=== PATIENT | male | born 1975 | race Caucasian/White ===

== ENCOUNTER 2017-10-17 08:56 | Emergency (ER) | payer OTHER, SELFPAY ==
--- NOTE | 2017-10-17 09:10 | XR_ITS ---
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 No lytic or blastic change. There is normal mineralization.. The joint spaces are well-preserved. No significant degenerative/arthritic changes. No erosive changes evident. IMPRESSION: Negative ankle, no acute finding
[2017-10-17 09:17] VITALS: BP 155/91; PULSE 88; RESP 18; TEMP 36.8; O2SAT 96; BMI 40.6
--- NOTE | 2017-10-17 09:32 | HMH.EDUTC ---
[facility] [place] Disposition Clinical Impression: Ankle sprain Disposition: Home, Self-Care Condition on Discharge: Good Instructions: How To Perform RICE (Rest, Ice, Compress, Elevate), Ankle Sprain, DI for Ankle Sprain Additional Instructions: *weight bearing as tolerated *RICE, Rest the extremity, Ice 15-20 minutes 3-4 times daily, Compress- wear the josafat wrap as discussed as much as possible to help reduce swelling and pain, Elevate the extremity when at rest *Josafat wrap is for support and help control swelling, use it except in the shower. Be sure that is not to tight but not to loose either *Elevate when resting *Ibuprofen 600-800mg every 6-8 hours as needed for pain an inflammation. If need something more can take Tylenol in between doses of Ibuprofen to help Immediately follow up for new or worsening of symptoms, or no noticeable improvement over the next 3-5 days Follow up with family doctor if referral to Orthopedics needed due to no improvement of symptoms Prescriptions: Ibuprofen [Ibuprofen 800mg Tab] 800 mg PO Q6HP PRN #20 tab PRN Reason: Moderate Pain Referrals: Db Ahn MD [Staff Physician] - Dariela Orozco DPM [Physician] - Uri Cruz MD [Staff Physician] - Time of Disposition: 09:50 Medical Decision Making - Medical Records Medical records reviewed: Yes: I reviewed the patient's medical records. Vital Signs: 10/17/17 09:17 Temperature 98.3 F Temperature Source Temporal Artery Scan Pulse Rate [Right] 88 Respiratory Rate 18 Blood Pressure [Right Arm] 155/91 Blood Pressure Mean [Right Arm] 112 Blood Pressure Source [Right Arm] Automatic Cuff Blood Pressure Position [Right Arm] Sitting 02 Sat by Pulse Oximetry 96 Oxygen Delivery Method Room Air Orders (Tests/Meds): ORDERS Category Date Time Status Ankle XR -Right minimum 3 Views [XR ankle RT min 3V] Exams 10/17/17 09:10 Ordered Stat - Alex Inquiry Pt receiving controlled substance: No Alex was queried for this patient: No [facility] [place] HPI - General Stated complaint: WC [id number] Right Ankle Pain Mode of Arrival: Ambulatory Source of Information: Patient Limitations: No Limitations Description of Symptoms (Recalled from Triage Doc. by RN): twisted right ankle sunday morning HEENT Symptoms (Recalled from RN notes): No Resp Symptoms (Recalled from RN notes): No Skin Symptoms (Recalled from RN notes): No MS Symptoms (Recalled from RN notes): Yes Functional Status (Recalled from RN notes): N - History of Present Illness Provider Complaint: Patient state that on Sunday he stepped on a pallet at work and the board broke. State that his ankle rolled to the outside and felt like it twisted State that he has been having pain in the ankle ever since State that he has been able to walk on it but when he steps and it puts pressure towards the outside his ankle feels weak and he feels like he is gonna fall - Related Data Home Medications Medication Instructions Recorded Confirmed Lisinopril/Hydrochlorothiazide 1 tab PO DAILY 10/17/17 10/17/17 [Lisinopril-Hctz 10-12.5 mg Tab] Previous Rx's Medication Instructions Recorded Ibuprofen [Ibuprofen 800mg Tab] 800 mg PO Q6HP PRN #20 tab 10/17/17 Allergies Allergy/AdvReac Type Severity Reaction Status Date / Time bacitracin Allergy Unknown Verified 10/17/17 09:22 [From NEOSPORIN ([id number])] morphine [MORPHINE] Allergy Unknown Verified 10/17/17 09:22 neomycin Allergy Unknown Verified 10/17/17 09:22 [From NEOSPORIN ([id number])] polymyxin B Allergy Unknown Verified 10/17/17 09:22 [From NEOSPORIN ([id number])] - Worker's Comp Is this a Worker's Comp case?: Yes [facility] History I have reviewed the patient's past medical history: Yes Medical History: Reports:: Hypertension - *Social History Alcohol Intake: current Alcohol Intake Frequency:: 0-2 drinks per day - Psychiatric History Expresses thoughts of harming self/o
--- NOTE | 2017-10-17 09:36 | ED_ITS ---
[facility] [place] Disposition Clinical Impression: Ankle sprain Disposition: Home, Self-Care Condition on Discharge: Good Instructions: How To Perform RICE (Rest, Ice, Compress, Elevate), Ankle Sprain , DI for Ankle Sprain Additional Instructions: *weight bearing as tolerated *RICE, Rest the extremity, Ice 15-20 minutes 3-4 times daily, Compress- wear the josafat wrap as discussed as much as possible to help reduce swelling and pain, Elevate the extremity when at rest *Josafat wrap is for support and help control swelling, use it except in the shower. Be sure that is not to tight but not to loose either *Elevate when resting *Ibuprofen 600-800mg every 6-8 hours as needed for pain an inflammation. If need something more can take Tylenol in between doses of Ibuprofen to help Immediately follow up for new or worsening of symptoms, or no noticeable improvement over the next 3-5 days Follow up with family doctor if referral to Orthopedics needed due to no improvement of symptoms Prescriptions: Ibuprofen [Ibuprofen 800mg Tab] 800 mg PO Q6HP PRN #20 tab PRN Reason: Moderate Pain Referrals: Db Ahn MD [Staff Physician] - Dariela Orozco DPM [Physician] - Uri Cruz MD [Staff Physician] - Time of Disposition: 09:50 Medical Decision Making - Medical Records Medical records reviewed: Yes: I reviewed the patient's medical records. Vital Signs: 10/17/17 09:17 Temperature 98.3 F Temperature Source Temporal Artery Scan Pulse Rate [Right] 88 Respiratory Rate 18 Blood Pressure [Right Arm] 155/91 Blood Pressure Mean [Right Arm] 112 Blood Pressure Source [Right Arm] Automatic Cuff Blood Pressure Position [Right Arm] Sitting 02 Sat by Pulse Oximetry 96 Oxygen Delivery Method Room Air Orders (Tests/Meds): ORDERS Category Date Time Status Ankle XR -Right minimum 3 Views [XR ankle RT min 3V] Exams 10/17/17 09:10 Ordered Stat - Alex Inquiry Pt receiving controlled substance: No Alex was queried for this patient: No [facility] [place] HPI - General Stated complaint: WC [id number] Right Ankle Pain Mode of Arrival: Ambulatory Source of Information: Patient Limitations: No Limitations Description of Symptoms (Recalled from Triage Doc. by RN): twisted right ankle sunday morning HEENT Symptoms (Recalled from RN notes): No Resp Symptoms (Recalled from RN notes): No Skin Symptoms (Recalled from RN notes): No MS Symptoms (Recalled from RN notes): Yes Functional Status (Recalled from RN notes): N - History of Present Illness Provider Complaint: Patient state that on Sunday he stepped on a pallet at work and the board broke. State that his ankle rolled to the outside and felt like it twisted State that he has been having pain in the ankle ever since State that he has been able to walk on it but when he steps and it puts pressure towards the outside his ankle feels weak and he feels like he is gonna fall - Related Data Home Medications Medication Instructions Recorded Confirmed Lisinopril/Hydrochlorothiazide 1 tab PO DAILY 10/17/17 10/17/17 [Lisinopril-Hctz 10-12.5 mg Tab] Previous Rx's Medication Instructions Recorded Ibuprofen [Ibuprofen 800mg Tab] 800 mg PO Q6HP PRN #20 tab 10/17/17 Allergies Allergy/AdvReac Type Severity Reaction Status Date / Time bacitracin Allergy Unknown Verified 10/17/17 09:22
== END 2017-10-17 09:53 | disposition home or self-care (01) ==
PROVIDERS: Emergency Provider Nurse Practitioner; Family Provider Family Medicine
DX: S93.401A Sprain of unspecified ligament of right ankle, initial encounter (principal); X50.1XXA Overexertion from prolonged static or awkward postures, initial encounter; Y93.9 Activity, unspecified; Y92.89 Other specified places as the place of occurrence of the external cause; Y99.0 Civilian activity done for income or pay; Z79.899 Other long term (current) drug therapy; I10 Essential (primary) hypertension; Z88.5 Allergy status to narcotic agent
CPT/HCPCS: 73610; 99202

== ENCOUNTER 2017-11-19 09:23 | Emergency (ER) | payer OTHER, SELFPAY ==
[2017-11-19 09:35] VITALS: BP 200/122; PULSE 96; RESP 20; TEMP 36.6; O2SAT 97; BMI 40.6
--- NOTE | 2017-11-19 09:41 | XR_ITS ---
XR ankle LT min 3V Ordering Physician: Harris Soria Patient Age: 42 years: Male HISTORY: ITS.REASON: PAIN Fall. Left ankle pain. Site not specified TECHNIQUE: 3 views left ankle COMPARISON :Right ankle 3 views 10/17/2017 FINDINGS Ankle mortise intact. Medial, lateral lateral and posterior malleolus intact. Dome of talus intact. Thin plantar calcaneal spur 6 mm length. .. Thicker more fragmented spurring at insertion of Achilles tendon overall spans 2 cm length. Most likely chronic feature but if focal pain from today's trauma difficult to exclude a a recent disruption along the spur at the Achilles insertion. . There is also some minimal spurring at the base of the fifth metatarsal similar to previous right ankle study. Mild soft tissue swelling overlying medial and lateral malleolus IMPRESSION: ===== 1. No acute fracture.Left ankle. Ankle mortise intact. 2. Calcaneal osteophytes most evident is the fragmented spurring at insertion of Achilles tendon.. Warrants correlation, as as discussed above
--- NOTE | 2017-11-19 10:00 | HMH.EDUTC ---
[facility] [place] Disposition Clinical Impression: Calcaneal spur of left foot Disposition: Home, Self-Care Condition on Discharge: Good Additional Instructions: Rest Ice elevate naproxen every 12 hours w/ food because your BP is too high for steroids. Take your BP medications because you are at a high risk for stroke, heart attach, sudden due to your significantly elevated blood pressure * No additional anti-inflammatories like motrin, aleve, advil with the above amount of naproxen. You CAN still take Tylenol every 4 hours as needed if you need something more for pain. Follow up with Dr. Orozco Heel spurs are abnormal bony growths that develop at the back of or under the heel. Inflammation around a spur, more so than the spur itself, can cause significant pain. Fortunately, symptoms can be eased with non-surgical treatments for the vast majority of people. Anatomy Your heel bone is called the calcaneus. It helps to bear and distribute your body weight across your foot when you stand or walk. Soft tissues that help move and shape the foot are attached to the calcaneus. One such tissue, the plantar fascia, forms the arch in the foot. Causes Heel spurs develop in some people that have a condition called plantar fasciitis, inflammation of the plantar fascia. Heel spurs form when the plantar fascia separates from the calcaneus. An abnormal bone growth, a hook-like spur, forms from calcium deposits that grow at the site of inflammation. Heel spurs are more common in middle-aged adults and people that have had plantar fasciitis for a long time. People with flat feet or high arches are vulnerable to heel spurs. Women who wear high-heeled shoes are more susceptible, as well. Symptoms Heel spurs may or may not cause symptoms. Symptoms are usually related to the plantar fasciitis. You may experience significant pain. Your heel pain may be worse in the morning when you first wake up or during certain activities. Diagnosis Your doctor will review your medical history and examine your foot. X-rays are used to identify the location and size of the heel spur. Treatment The majority of heel spurs are treated with non-surgical interventions. These can relieve pain, but may take from about 3 months to up to a year for symptoms to resolve. Rest, icing, and [id number] anti-inflammatory or prescription medications can help ease symptoms. Cortisone injections may also be used. You may be instructed to perform stretching exercises to help relax the tissues in the heel. Your doctor may recommend custom orthotics or shoe inserts to position and cushion your heel. Night splints can help position the heel and arch of the foot while you sleep. Some doctors may recommend extracorporeal shock wave therapy (ESWT). This treatment uses energy pulses to start the repair process in the heel tissues. ESWT is recommend when other non-surgical treatments have failed. Surgery Surgery is used a very small percentage of the time. It is usually considered after trying non-surgical treatments for at least a year. Plantar fascia release surgery is use to relax the plantar fascia. This surgery is commonly paired with tarsal tunnel release surgery. Surgery is successful for the majority of people. Recovery Recovery from non-surgical heel spur treatment can take considerable time, usually from three months to a year. However, most doctors agree that non-surgical treatments should be tried for at least one year before considering surgery. Prevention You can help prevent heel spur symptoms from returning by wearing the proper shoes. Customized orthotics and insoles can help relieve pressure. It is important to perform your exercises to help keep your foot stretched and relaxed. Prescriptions: Naproxen 500 mg PO BID #28 tab Referrals: Dariela Orozco DPM [Physician] - (Stop by her office on way out and schedule follow up. Tell them you were in [facility] and she looked
--- NOTE | 2017-11-19 10:03 | ED_ITS ---
[facility] [place] Disposition Clinical Impression: Calcaneal spur of left foot Disposition: Home, Self-Care Condition on Discharge: Good Additional Instructions: Rest Ice elevate naproxen every 12 hours w/ food because your BP is too high for steroids. Take your BP medications because you are at a high risk for stroke, heart attach , sudden due to your significantly elevated blood pressure * No additional anti-inflammatories like motrin, aleve, advil with the above amount of naproxen. You CAN still take Tylenol every 4 hours as needed if you need something more for pain. Follow up with Dr. Orozco Heel spurs are abnormal bony growths that develop at the back of or under the heel. Inflammation around a spur, more so than the spur itself, can cause significant pain. Fortunately, symptoms can be eased with non-surgical treatments for the vast majority of people. Anatomy Your heel bone is called the calcaneus. It helps to bear and distribute your body weight across your foot when you stand or walk. Soft tissues that help move and shape the foot are attached to the calcaneus. One such tissue, the plantar fascia, forms the arch in the foot. Causes Heel spurs develop in some people that have a condition called plantar fasciitis , inflammation of the plantar fascia. Heel spurs form when the plantar fascia separates from the calcaneus. An abnormal bone growth, a hook-like spur, forms from calcium deposits that grow at the site of inflammation. Heel spurs are more common in middle-aged adults and people that have had plantar fasciitis for a long time. People with flat feet or high arches are vulnerable to heel spurs. Women who wear high-heeled shoes are more susceptible , as well. Symptoms Heel spurs may or may not cause symptoms. Symptoms are usually related to the plantar fasciitis. You may experience significant pain. Your heel pain may be worse in the morning when you first wake up or during certain activities. Diagnosis Your doctor will review your medical history and examine your foot. X-rays are used to identify the location and size of the heel spur. Treatment The majority of heel spurs are treated with non-surgical interventions. These can relieve pain, but may take from about 3 months to up to a year for symptoms to resolve. Rest, icing, and [id number] anti-inflammatory or prescription medications can help ease symptoms. Cortisone injections may also be used. You may be instructed to perform stretching exercises to help relax the tissues in the heel. Your doctor may recommend custom orthotics or shoe inserts to position and cushion your heel. Night splints can help position the heel and arch of the foot while you sleep. Some doctors may recommend extracorporeal shock wave therapy (ESWT). This treatment uses energy pulses to start the repair process in the heel tissues. ESWT is recommend when other non-surgical treatments have failed. Surgery Surgery is used a very small percentage of the time. It is usually considered after trying non-surgical treatments for at least a year. Plantar fascia release surgery is use to relax the plantar fascia. This surgery is commonly paired with tarsal tunnel release surgery. Surgery is successful for the majority of people. Recovery Recovery from non-surgical heel spur treatment can take considerable time, usually from three months to a year. However, most doctors agree that non- surgical treatments should be tried for at least one year before considering
[2017-11-19 10:30] LABS: Basophils # 0.1 K/mm3 (0-0.2); Basophils % 0.6 % (0.1-2.0); Eosinophils # 0.2 K/mm3 (0.0-0.4); Eosinophils % 2.2 % (0.1-12.0); Hematocrit 46.5 % (42.0-52.0); Hemoglobin 15.1 g/dL (14.1-18.0); Lymphocytes # 2.5 K/mm3 (0.7-4.5); Lymphocytes % 32.1 K/mm3 (10-50); Mean Corpuscular HGB Conc 32.4 g/dL (31.8-35.4); Mean Corpuscular Hemoglobin 28.7 pg (27.0-31.2); Mean Corpuscular Volume 88.6 fl (80-94); Mean Platelet Volume 8.2 fl (7.4-10.4); Monocytes # 0.5 K/mm3 (0.1-1.0); Monocytes % 6.5 % (1.7-9.3); Neutrophils # 4.5 K/mm3 (1.8-7.8); Neutrophils % 58.5 % (37.0-80.0); Platelet Count 261 K/mm3 (142-424); Red Blood Count 5.25 M/mm3 (4.60-6.20); Red Cell Distribution Width 13.3 % (11.5-17.5); White Blood Count 7.7 K/mm3 (4.8-10.8)
[2017-11-19 10:52] LABS: Anion Gap 10.9 mEq/L (5-15); Blood Urea Nitrogen 14 mg/dL (7-18); Carbon Dioxide 32 mmol/L (21.0-32.0); Chloride 103 mmol/L (98-107); Creatinine Clearance Estimated 218 mL/min (0-300); Creatinine,Serum 0.84 mg/dL (0.70-1.30); Estimated Glomerular Filt Rate 100 ml/min (>60); GFR (African American) 121 ML/MIN (>60); Glucose 117 mg/dL (74-106); Potassium 3.9 mmoL/L (3.5-5.1); Sodium 142 mmol/L (136-145); Uric Acid 7.9 mg/dL (2.6-7.2)
--- NOTE | 2017-11-19 11:48 | PC.NURSE ---
1148-ACTUARIAL CONSULTANT SANJAY CALLED AND LET US KNOW THAT THE MAIN ANALYZER WAS DONE AND CHEMISTRY LABS WOULD BE DELAYED.
[2017-11-19 12:28] VITALS: BP 183/137; PULSE 87; RESP 20; TEMP 36.9; O2SAT 97
== END 2017-11-19 12:15 | disposition home or self-care (01) ==
PROVIDERS: Emergency Provider Nurse Practitioner Family; Family Provider Family Medicine
DX: M77.32 Calcaneal spur, left foot (principal); I10 Essential (primary) hypertension; T46.4X6A Underdosing of angiotensin-converting-enzyme inhibitors, initial encounter; Z91.128 Patient's intentional underdosing of medication regimen for other reason; M10.9 Gout, unspecified
CPT/HCPCS: 73610; 80048; 84550; 85025; 99202

== ENCOUNTER → 2018-10-03 18:05 | Outpatient (CLI) | payer OTHER, SELFPAY ==
[2018-10-03 18:28] LABS: Basophils # 0.1 K/mm3 (0-0.2); Eosinophils # 0.2 K/mm3 (0.0-0.4); Eosinophils % 2.1 % (0.1-12.0); Hematocrit 44.6 % (42.0-52.0); Hemoglobin 14.4 g/dL (14.1-18.0); Lymphocytes # 2.7 K/mm3 (0.7-4.5); Lymphocytes % 34.9 % (10-50); Mean Corpuscular HGB Conc 32.3 g/dL (31.8-35.4); Mean Corpuscular Hemoglobin 29.2 pg (27.0-31.2); Mean Corpuscular Volume 90.3 fl (80-94); Mean Platelet Volume 7.3 fl (7.4-10.4); Monocytes # 0.5 K/mm3 (0.1-1.0); Monocytes % 6.2 % (1.7-9.3); Neutrophils # 4.2 K/mm3 (1.8-7.8); Neutrophils % 55.7 % (37.0-80.0); Platelet Count 255 K/mm3 (142-424); Red Blood Count 4.94 M/mm3 (4.60-6.20); Red Cell Distribution Width 13.4 % (11.5-17.5); White Blood Count 7.6 K/mm3 (4.8-10.8)
[2018-10-03 18:43] LABS: Alanine Aminotransferase 29 U/L (12-78); Albumin Level 3.8 gm/dL (3.4-5.0); Albumin/Globulin Ratio 1.1 (1.1-1.8); Alkaline Phosphatase 75 U/L (46-116); Anion Gap 11.9 mEq/L (5-15); Aspartate Amino Transferase 16 U/L (15-37); Bilirubin,Total 0.5 mg/dL (0.2-1.0); Blood Urea Nitrogen 13 mg/dL (7-18); Carbon Dioxide 30 mmol/L (21.0-32.0); Chloride 101 mmol/L (98-107); Chol/HDL Ratio 4.5 (1-3.5); Cholesterol 212 mg/dL (140-200); Creatinine,Serum 0.93 mg/dL (0.70-1.30); Estimated Glomerular Filt Rate 88 ml/min (>60); Free Thyroxine Index 2.7 ug/dL (5.93-13.13); GFR (African American) 107 ML/MIN (>60); Globulin 3.6 gm/dl (1.3-3.2); Glucose 105 mg/dL (74-106); HDL Cholesterol 47 mg/dL (27-67); LDL Cholesterol 140 mg/dL (0-130); Phosphorous 4.5 mg/dL (2.4-4.9); Potassium 3.9 mmoL/L (3.5-5.1); Sodium 139 mmol/L (136-145); T4 (Thyroxine) 7.5 ug/dl (4.7-13.3); Thyroid Stimulating Hormone 2.67 uIU/ml (0.358-3.740); Total Protein,Serum 7.4 gm/dL (6.4-8.2); Triglycerides 126 mg/dL (30-200); Triiodothryronine (T3) Uptake 36 % (31-39); VLDL Cholesterol 25 mg/dL (0-40)
[2018-10-03 19:31] LABS: Hemoglobin A1C 6.2 % (0.0-7.0)
[2018-10-05 22:50] LABS: Vitamin D 25 Hydroxy 11.5 ng/mL (30.0-100.0)
== END ==
PROVIDERS: Visit Provider Nurse Practitioner Family
DX: R53.83 Other fatigue (principal); I10 Essential (primary) hypertension
CPT/HCPCS: 80053; 80061; 80069; 82652; 83036; 84436; 84443; 84479; 85025

== ENCOUNTER → 2018-10-11 12:40 | Outpatient (CLI) | payer OTHER, SELFPAY ==
--- NOTE | 2018-10-11 12:44 | CI_ITS ---
Cerebrovascular Exam Indications: 785.9 Bruit. IMPRESSIONS 1. The right vertebral artery is patent with normal antegrade flow. Left vetebral artery was non-visulaized. 2. Study suggests less than 20% stenosis involving the right internal carotid artery. 3. Study suggests less than 20% stenosis involving the left internal carotid artery. 4. Lymph node visualized right neck measuring 4.0cm. Multiple lymph nodes visualized left neck, the largest measures 2.7cm. History: Stroke. Risk factors: Hypertension. Carotid duplex study. Complete study and Doppler flow study including spectral analysis, color and smiley scale imaging. Location: Vascular laboratory. Patient status: Outpatient. Tables: Arterial flow: + +--------+--------+ Location V sys V ed + +--------+--------+ Right CCA - proximal 84.1cm/s 19.6cm/s + +--------+--------+ Right CCA - distal 65cm/s 14.1cm/s + +--------+--------+ Right ECA 118cm/s 10.2cm/s + +--------+--------+ Right ICA - proximal 69.1cm/s 23.6cm/s + +--------+--------+ Right ICA - mid 77cm/s 22.8cm/s + +--------+--------+ Right ICA - distal 74.6cm/s 21.2cm/s + +--------+--------+ Right vertebral 40.1cm/s 12.6cm/s + +--------+--------+ Left CCA - proximal 102cm/s 19.6cm/s + +--------+--------+ Left CCA - distal 89.6cm/s 23.6cm/s + +--------+--------+ Left ECA 95.9cm/s 17.3cm/s + +--------+--------+ Left ICA - proximal 67.6cm/s 21.2cm/s + +--------+--------+ Left ICA - mid 92.7cm/s 32.2cm/s + +--------+--------+ Left ICA - distal 94.3cm/s 34.6cm/s + +--------+--------+ Velocity ratios: + + + + + + Right, V sys Right, V ed Left, V sys Left, V ed + + + + + + Max ICA/dist CCA 1.18 1.67 1.05 1.47 + + + + + + (Report amended ) Electronically signed by: Bharat Akbar [id number]
== END ==
PROVIDERS: PCP Nurse Practitioner Family; Visit Provider Nurse Practitioner Family
DX: R09.89 Other specified symptoms and signs involving the circulatory and respiratory systems (principal)
CPT/HCPCS: 93880

== ENCOUNTER → 2018-10-16 08:30 | Outpatient (CLI) | payer OTHER, SELFPAY ==
[2018-10-18 08:30] LABS: Hep A Ab, IgM Negative (Negative); Hepatitis B Core Antibody IgM Negative (Negative); Hepatitis B Surface Antigen Negative (Negative)
[2018-10-18 17:13] LABS: Hepatitis C Antibody 0.2 s/co ratio (0.0-0.9)
== END ==
PROVIDERS: Visit Provider Nurse Practitioner Family
DX: Z20.5 Contact with and (suspected) exposure to viral hepatitis (principal); I10 Essential (primary) hypertension
CPT/HCPCS: 80074

== ENCOUNTER → 2018-10-22 14:43 | Outpatient (CLI) | payer OTHER, SELFPAY ==
--- NOTE | 2018-10-22 14:43 | CA_ITS ---
PROCEDURE: 2-D M-mode and color Doppler study INDICATIONS FOR THE TEST: Chest pain COPD Heart Murmur Tobacco Smoking Palpitations+ Fatigue+ Syncope Edema+ Hypertension+Diabetes Mellitus Rheumatic Fever SOB+SCALES Obesity+Hyperlipidemia Family History HD+ Additional History AZUL Definity contrast utilized PATIENT INFORMATION HEIGHT: 72 WEIGHT: 313 GENDER: Male B/P: 172/104 2-D/M-MODE INTERPRETATION: 2-D MEASUREMENTS OBSERVED VALUES IN CMS Right Ventricular Dimension (RVDd) 3.4 Interventricular Septum (Thickness)(IVsd) 1.5 Left Ventricular Internal Dimensions(LVIDd) 5.6 Left Ventricular Posterior Wall (Thickness)(LVPWd) 1.2 Aortic Root 3.2 Aortic Cusp Separation 2.5 Left Atrial Dimensions (LAD) 4.6 2D 1. Left atrium is mildly enlarged, left ventricle is normal size, mild concentric left ventricular hypertrophy, visually estimated ejection fraction 55% with no regional wall motion abnormality, Definity contrast was utilized to delineate endocardial surfaces. 2. The right atrium and right ventricle are mildly enlarged with normal contractility. 3. The aortic, mitral and tricuspid valvular grossly normal. 4. The pulmonic valve is poorly present. 5. No significant pericardial effusion noted. DOPPLER INTERROGATION: Doppler interrogation of the aortic, mitral and tricuspid valvular presence of mild mitral and tricuspid regurgitation, tricuspid regurgitation jet velocity is inadequate for calculation of the right ventricular systolic pressure, diastolic parameters are inconclusive. CONCLUSION: 1. Technically difficult study because of the patient's factor and poor acoustic windows, Definity contrast was placed to delineate endocardial surfaces. 2. Mildly enlarged left atrium, normal left ventricular size, mild concentric left ventricular hypertrophy, visually estimated ejection fraction of 55% with no regional wall motion abnormality, diastolic parameters are conclusive. 3. Mildly enlarged right ventricle with normal contractility. 4. Mild mitral and tricuspid regurgitation 5. No significant pericardial effusion noted.
== END ==
PROVIDERS: PCP Nurse Practitioner Family; Visit Provider Internal Medicine
DX: R00.0 Tachycardia, unspecified (principal); R06.02 Shortness of breath; I10 Essential (primary) hypertension; Z82.49 Family history of ischemic heart disease and other diseases of the circulatory system
CPT/HCPCS: 93306

== ENCOUNTER 2018-11-11 12:16 | Emergency (ER) | payer OTHER, SELFPAY ==
[2018-11-11 12:23] VITALS: BP 192/110; PULSE 76; RESP 18; TEMP 36.9; O2SAT 97; BMI 44.0
--- NOTE | 2018-11-11 12:23 | XR_ITS ---
XR ankle RT min 3V HISTORY: Right ankle pain ITS.REASON: Fall ORDERING PHYSICIAN: Chuy Medrano PATIENT AGE: 43 years Comparison: ): 11/04/2018 FINDINGS: No fracture or dislocation. No lytic or blastic change. There is normal mineralization.. The joint spaces are well-preserved. No significant degenerative/arthritic changes. No erosive changes evident. There are prominent spurs both at the insertion of the Achilles tendon and plantar tendon. IMPRESSION: Negative ankle, no acute finding
--- NOTE | 2018-11-11 12:25 | PC.NURSE ---
XRAY AWARE OF ORDER
--- NOTE | 2018-11-11 12:31 | PC.NURSE ---
PT AMBULATORY TO XRAY WITH LIVESTOCK RANCHER
--- NOTE | 2018-11-11 12:37 | HMH.EDUTC ---
[facility] [place] Clinical Impression: Foot pain, right Ankle sprain Qualifiers: Encounter type: initial encounter Involved ligament of ankle: tibiofibular ligament Laterality: right Qualified Code(s): S93.431A - Sprain of tibiofibular ligament of right ankle, initial encounter Disposition: Home, Self-Care Condition on Discharge: Good Additional Instructions: waling boot applied RICE NSAIDs Crutches Prescriptions: Naproxen 500 mg PO Q12H PRN 30 Days #60 tablet PRN Reason: Muscle Pain Referrals: Severino Samuel APRN [Primary Care Provider] - 7-14 days (already scheduled with dr. knox, podiatry) Forms: Work/School Release Time of Disposition: 13:16 Medical Decision Making - Alex Inquiry Pt receiving controlled substance: No Vital Signs: 11/11/18 12:23 Temperature 98.5 F Temperature Source Oral Pulse Rate [Right Brachial] 76 Respiratory Rate 18 Blood Pressure [Right Arm] 192/110 H Blood Pressure Mean [Right Arm] 137 Blood Pressure Source [Right Arm] Automatic Cuff Blood Pressure Position [Right Arm] Sitting 02 Sat by Pulse Oximetry 97 Oxygen Delivery Method Room Air Orders (Tests/Meds): ORDERS Category Date Time Status Ankle XR -Right minimum 3 Views [XR ankle RT min 3V] Exams 11/11/18 12:23 Taken Stat - Radiology Data #1 Image(s): Ankle, Foot/Toes Image Reviewed: Yes I reviewed the patient's radiology image w/the ED provider [facility] [place] - General Stated complaint: AO [id number] fell, right ankle pain Time Seen by Provider: 11/11/18 12:37 Mode of Arrival: Ambulatory Source of Information: Patient Limitations: No Limitations Description of Symptoms (Recalled from Triage Doc. by RN): Patient advises he slipped on ice a couple of weeks ago and has been having problems with his right ankle. Has been seen in the ED and by family doc for it. Advises he wet back to work today and now his ankle is swollen and painful to walk on. HEENT Symptoms (Recalled from RN notes): No Resp Symptoms (Recalled from RN notes): No Skin Symptoms (Recalled from RN notes): No MS Symptoms (Recalled from RN notes): Yes (right ankle pain) Functional Status (Recalled from RN notes): na - History of Present Illness Onset (ago): week(s) Location: lower extremity Severity: moderate Quality: constant Consistency: intermittent Relieving factors: immobilization Exacerbating factors: movement Treatments prior to arrival: NSAID - Related Data Home Medications Medication Instructions Recorded Confirmed Aspirin 81 mg PO DAILY 11/11/18 11/11/18 Atorvastatin Calcium [Atorvastatin 20 mg PO DAILY 11/11/18 11/11/18 20mg Tab] Bisoprolol Fumarate [Bisoprolol 5 mg PO DAILY 11/11/18 11/11/18 5mg Tablet] Ergocalciferol (Vitamin D2) 50,000 unit PO QWEEK 11/11/18 11/11/18 [Drisdol] Lisinopril/Hydrochlorothiazide 2 tab PO DAILY 11/11/18 11/11/18 [Lisinopril-Hctz 20-12.5 mg Tab] Previous Rx's Medication Instructions Recorded Naproxen 500 mg PO Q12H PRN 30 Days #60 11/11/18 tablet Allergies Allergy/AdvReac Type Severity Reaction Status Date / Time bacitracin Allergy Unknown Verified 11/11/18 12:26 [From NEOSPORIN ([id number])] morphine [MORPHINE] Allergy Unknown Verified 11/11/18 12:26 neomycin Allergy Unknown Verified 11/11/18 12:26 [From NEOSPORIN ([id number])] polymyxin B Allergy Unknown Verified 11/11/18 12:26 [From NEOSPORIN ([id number])] - Worker's Comp Is this a Worker's Comp case?: No H History - Hepatitis A Screen Drug use history?: No High risk sexual behaviors?: No History of sexually transmitted infection?: No Currently employed?: No Childcare worker?: No Do you have indoor plumbing?: Yes Do you have electricity?: Yes Attestation statement:: This patient has been screened for Hepatitis A risk factors. I have reviewed the patient's past medical history: Yes Medical History: Reports:: Cerebrovascular Accident, Hypert
--- NOTE | 2018-11-11 13:07 | PC.NURSE ---
Malou [place] APRN AT BEDSIDE TO UPDATE PT OF RESULTS
--- NOTE | 2018-11-11 13:21 | PC.NURSE ---
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 Patient advises he hasnt taken his medicine today and it can get that high when he doesn't take his meds.
[2018-11-11 13:40] VITALS: BP 190/100; PULSE 75; RESP 16; TEMP 36.8; O2SAT 98
== END 2018-11-11 13:40 | disposition home or self-care (01) ==
PROVIDERS: Emergency Provider Nurse Practitioner Family; PCP Nurse Practitioner Family
DX: S93.431A Sprain of tibiofibular ligament of right ankle, initial encounter (principal); W00.0XXA Fall on same level due to ice and snow, initial encounter; I10 Essential (primary) hypertension
CPT/HCPCS: 29515; 73610; 99202

== ENCOUNTER → 2019-07-31 10:37 | Outpatient (CLI) | payer OTHER, SELFPAY ==
[2019-07-31 13:25] LABS: Basophils # 0.1 K/mm3 (0-0.2); Basophils % 0.7 % (0.1-2.0); Eosinophils # 0.2 K/mm3 (0.0-0.4); Eosinophils % 3.1 % (0.1-12.0); Hematocrit 43.2 % (42.0-52.0); Hemoglobin 14.2 g/dL (14.1-18.0); Lymphocytes # 2.2 K/mm3 (0.7-4.5); Lymphocytes % 31.8 % (10-50); Mean Corpuscular HGB Conc 32.8 g/dL (31.8-35.4); Mean Corpuscular Hemoglobin 29.6 pg (27.0-31.2); Mean Platelet Volume 8.2 fl (7.4-10.4); Monocytes # 0.3 K/mm3 (0.1-1.0); Monocytes % 4.4 % (1.7-9.3); Neutrophils # 4.1 K/mm3 (1.8-7.8); Neutrophils % 60.1 % (37.0-80.0); Platelet Count 243 K/mm3 (142-424); Red Cell Distribution Width 13.3 % (11.5-17.5); White Blood Count 6.9 K/mm3 (4.8-10.8)
[2019-07-31 14:04] LABS: Alanine Aminotransferase 25 U/L (12-78); Albumin Level 3.4 gm/dL (3.4-5.0); Alkaline Phosphatase 66 U/L (46-116); Aspartate Amino Transferase 10 U/L (15-37); Bilirubin,Direct 0.1 mg/dL (0.0-0.2); Bilirubin,Indirect 0.4 mg/dL (0.0-0.9); Bilirubin,Total 0.5 mg/dL (0.2-1.0); Blood Urea Nitrogen 13 mg/dL (7-18); Calcium 8.8 mg/dL (8.5-10.1); Carbon Dioxide 30 mmol/L (21.0-32.0); Chloride 102 mmol/L (98-107); Cholesterol 138 mg/dL (140-200); Estimated Glomerular Filt Rate 105 ml/min (>60); Free T4 (Free Thyroxine) 0.97 ng/dl (0.76-1.46); GFR (African American) 126 ML/MIN (>60); Glucose 116 mg/dL (74-106); HDL Cholesterol 46 mg/dL (27-67); LDL Cholesterol 57 mg/dL (0-130); Sodium 140 mmol/L (136-145); Thyroid Stimulating Hormone 3.13 uIU/ml (0.358-3.740); Total Protein,Serum 6.9 gm/dL (6.4-8.2); Triglycerides 173 mg/dL (30-200); VLDL Cholesterol 35 mg/dL (0-40)
== END ==
PROVIDERS: PCP Nurse Practitioner Family; Visit Provider Physician Assistant
DX: I10 Essential (primary) hypertension (principal); E55.9 Vitamin D deficiency, unspecified
CPT/HCPCS: 36415; 80048; 80061; 80076; 84439; 84443; 85025

== ENCOUNTER → 2019-09-02 07:22 | Outpatient (CLI) | payer OTHER, SELFPAY ==
--- NOTE | 2019-09-02 07:24 | CA_ITS ---
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 (R) 40.2/8.3 cm/sec RI: 0.79 Segmental A. Sup (R) 34.6/12.9 cm/sec Segmental A. Mid (R) 26.8/11.9 cm/sec Segmental A. Inf (R) 40.2/8.3 cm/sec Proximal (L) 108.6/ cm/sec Mid (L) 84.1/ cm/sec Distal (L) 69.8/ cm/sec Renal Aorta Ratio (L) 1.25 Segmental A. (L) 40.2/11.1 cm/sec RI: 0.72 Segmental A. Sup (L) 40.2/11.1 cm/sec Segmental A. Mid (L) 33.8/11.1 cm/sec Segmental A. Inf (L) 34.9/5.8 cm/sec Renal Measurements Kidney Size (R) 13.6x9.6 cm Cortical Thickness (R) 1.9 cm Kidney Size (L) 13.7x8.3 cm Cortical Thickness (L) 1.9 cm Findings Study suggests no evidence of bilateral renal artery stenosis. Conclusion Study suggests no evidence of renal artery stenosis. Electronically signed by : Juanjo Mcdaniel MD 09/03/2019 18:49:02
== END ==
PROVIDERS: PCP Emergency Medicine; Visit Provider Physician Assistant
DX: I10 Essential (primary) hypertension (principal)
CPT/HCPCS: 93976

== ENCOUNTER 2020-01-22 10:35 | Emergency (ER) | payer MEDICAID, SELFPAY ==
[2020-01-22 10:44] VITALS: BP 127/80; PULSE 85; RESP 16; TEMP 36.6; O2SAT 98; BMI 40.6
--- NOTE | 2020-01-22 10:52 | XR_ITS ---
PROCEDURE: XR KNEE RT 3V CLINICAL INDICATION: pain Right knee pain and swelling COMPARISON: No exams were available for comparison FINDINGS: No fracture or dislocation. No lytic or blastic change. There is normal mineralization. The joint spaces are well-preserved. No significant degenerative/arthritic changes. No erosive changes evident. Other findings:There are nonspecific calcifications in the suprapatellar region. Small bone island involves the proximal tibia medially. IMPRESSION: No acute findings. Dictated by: Juanjo Mcdaniel MD 01/22/2020 11:20 Electronically signed by Juanjo Mcdaniel MD in [place] 01/22/2020 11:20
--- NOTE | 2020-01-22 11:15 | HMH.EDGENADL ---
ED Disposition Clinical Impression: Knee MCL sprain Disposition: Home, Self-Care Condition on Discharge: Good Instructions: DI for Acute Pain -- Adult Additional Instructions: Please ice her knee and get a medial knee brace from home medical. You do have a sprain of the MCL. Referrals: Severino Samuel APRN [Primary Care Provider] - - Critical Care Critical Care Time: No Attestation: On 01/22/20, the high probability of a clinically significant, sudden or life threatening deterioration of the following system(s) required my full and direct attention, intervention and personal management. The time I documented below is in addition to time spent performing reported procedures but includes the following listed in this critical care notation. Medical Decision Making - Medical Records Medical records reviewed: Yes: I reviewed the patient's medical records. - Alex Inquiry Pt receiving controlled substance: No Vital Signs: 01/22/20 10:44 Temperature 98 F Temperature Source Oral Pulse Rate [Left Radial] 85 Respiratory Rate 16 Blood Pressure [Right Arm] 127/80 Blood Pressure Mean [Right Arm] 95 Blood Pressure Position [Right Arm] Sitting 02 Sat by Pulse Oximetry 98 Oxygen Delivery Method Room Air - Lab Data Lab results reviewed: Yes: I reviewed the patient's lab results. Orders (Tests/Meds): ORDERS Category Date Time Status Knee XR right 3 views [XR knee RT 3V] Stat Exams 01/22/20 10:52 Taken - Radiology Data #1 Image(s): Knee Preliminary Findings: Normal/NAD General Adult HPI - General Chief complaint: PAIN Stated complaint: knee pain Right Time Seen by Provider: 01/22/20 11:15 Mode of Arrival: Ambulatory Source of Information: Patient Limitations: No Limitations Description of Symptoms (Recalled from ER Triage Doc. by RN): to ed per pvt car with c/o rt knee pain x 4 weeks. pt states stomping on wood and hit the ground to hard limited weight bearing rt leg. states now lt hip pain due to favoring rt leg. - History of Present Illness HPI narrative: 84-year-old gentleman presents the ED with right knee pain. He states sometimes his knee goes out. He states that he was standing he felt his knee twist and has complete pain on the medial aspect of the knee. Patient rates his pain 5 out of 10. Alleviating factors include rest exacerbating factors include ambulation. Patient denies any other trauma. Patient states that he does not have a lot of locking or buckling sensation of the knee. He feels like the joint is stable but he just has that medial pain. Otherwise no other injuries. Patient denies any recent nausea vomiting diarrhea patient denies any recent fever shakes or chills. - Related Data Previous Rx's Medication Instructions Recorded atorvastatin 20 mg tablet 20 mg PO DAILY #90 tab 09/08/19 carvedilol 12.5 mg tablet 12.5 mg PO BID #60 tab 09/08/19 Cyclobenzaprine HCl [Flexeril 10mg 10 mg PO TID PRN #15 tab 09/11/19 tablet] Etodolac [Etodolac 200mg Cap*] 200 mg PO Q6H PRN #20 cap 09/11/19 amlodipine 10 mg tablet 10 mg PO BID #60 tab 01/19/20 lisinopril 20 1 tab PO BID #30 tab 01/19/20 mg-hydrochlorothiazide 12.5 mg tablet Allergies Allergy/AdvReac Type Severity Reaction Status Date / Time bacitracin Allergy Unknown Verified 09/08/19 13:30 [From NEOSPORIN ([id number])] morphine [MORPHINE] Allergy Unknown Verified 09/08/19 13:30 neomycin Allergy Unknown Verified 09/08/19 13:30 [From NEOSPORIN (BHR-CEP-YUTED)] polymyxin B Allergy Unknown Verified 09/08/19 13:30 [From NEOSPORIN (QFF-GRE-[id number])] [facility] History - Hepatitis A Screen Drug use history?: No High risk sexual behaviors?: No History of sexually transmitted infection?: No Currently employed?: No Childcare worker?: No Do you have indoor plumbing?: Yes Do you have electricity?: Yes Attestation statement:: This patient has been screened for Hepatitis
[2020-01-22 11:31] VITALS: BP 155/74; PULSE 78; RESP 16; TEMP 36.6; O2SAT 98
--- NOTE | 2020-01-22 11:31 | PC.NURSE ---
ubaldo wrap to rt knee
== END 2020-01-22 11:32 | disposition home or self-care (01) ==
PROVIDERS: Emergency Provider Family Medicine; PCP Nurse Practitioner Family
DX: S83.91XA Sprain of unspecified site of right knee, initial encounter (principal); X50.1XXA Overexertion from prolonged static or awkward postures, initial encounter; Y92.019 Unspecified place in single-family (private) house as the place of occurrence of the external cause; I10 Essential (primary) hypertension; Z88.5 Allergy status to narcotic agent; Z90.09 Acquired absence of other part of head and neck; Z86.73 Personal history of transient ischemic attack (TIA), and cerebral infarction without residual deficits; Z79.899 Other long term (current) drug therapy
CPT/HCPCS: 73562; 99282

== ENCOUNTER 2021-04-12 15:12 | Emergency (ER) | payer MEDICARE, MEDICAID, SELFPAY ==
[2021-04-12 15:13] VITALS: BP 149/95; PULSE 99; RESP 16; TEMP 36.7; O2SAT 97; BMI 44.7
[2021-04-12 15:30] VITALS: BP 149/95; PULSE 99; RESP 16; TEMP 36.7; O2SAT 97; BMI 44.6
--- NOTE | 2021-04-12 15:44 | HMH.EDUTC ---
[facility] [place] Disposition Clinical Impression: Ingrown toenail of left foot with infection Disposition: Home, Self-Care Condition on Discharge: Good Instructions: Ingrown Toenail, DI for Ingrown Toenail, Doxycycline Additional Instructions: Soak your feet in warm water and epson salt. Do this for 15 to 20 minutes three to four times a day. Soaking reduces swelling and relieves tenderness Take medication as prescribed Follow up with your Family Doctor if no improvement or any worsening of symptoms Return if needed Straight to ER if any life threatening symptoms Prescriptions: Doxycycline Monohydrate [Doxycycline [place] 100mg Tab] 100 mg PO Q12 10 Days #20 tab Transmission Status: Pending to [id number] Referrals: Severino Samuel APRN [Primary Care Provider] - As needed Time of Disposition: 15:59 Medical Decision Making - Alex Inquiry Pt receiving controlled substance: No Alex was queried for this patient: No Vital Signs: 04/12/21 15:13 Temperature 98.1 F Temperature Source Oral Pulse Rate [Left Radial] 99 H Respiratory Rate 16 Blood Pressure [Left Arm] 149/95 H Blood Pressure Mean [Left Arm] 113 Blood Pressure Source [Left Arm] Automatic Cuff Blood Pressure Position [Left Arm] Sitting 02 Sat by Pulse Oximetry 97 Oxygen Delivery Method Room Air [facility] [place] HPI - General Stated complaint: AO injured L toe on case of pop 04/10 Time Seen by Provider: 04/12/21 15:44 Mode of Arrival: Ambulatory Source of Information: Patient Limitations: No Limitations Description of Symptoms (Recalled from Triage Doc. by RN): C/O lt great toe pain. States that he cut out an ingrown toenail on and then hit his toe on a case of pop on Sun. It since has been red, swollen, and painful - History of Present Illness Provider Complaint: Patient states that he had a ingrown toe nail on and he cut it out States that he then hit it on box of pop States that now it is swollen and red and he thinks it may be infected States that he noticed he was getting wet infection stains on his socks and today it was more red today and he was swollen - Related Data Previous Rx's Medication Instructions Recorded Cyclobenzaprine HCl [Flexeril 10mg 10 mg PO TID PRN #15 tab 09/11/19 tablet] atorvastatin 20 mg tablet 20 mg PO DAILY #30 tab 02/08/21 carvedilol 12.5 mg tablet 12.5 mg PO BID #60 tab 02/08/21 lisinopril 20 1 tab PO BID #60 tab 02/08/21 mg-hydrochlorothiazide 12.5 mg tablet amlodipine 10 mg tablet 10 mg PO BID #60 tab 03/30/21 Doxycycline Monohydrate 100 mg PO Q12 10 Days #20 tab 04/12/21 [Doxycycline [place] 100mg Tab] Allergies Allergy/AdvReac Type Severity Reaction Status Date / Time bacitracin Allergy Unknown Verified 02/08/21 10:30 [From NEOSPORIN ([id number])] morphine [MORPHINE] Allergy Unknown Verified 02/08/21 10:30 neomycin Allergy Unknown Verified 02/08/21 10:30 [From NEOSPORIN ([id number])] polymyxin B Allergy Unknown Verified 02/08/21 10:30 [From NEOSPORIN ([id number])] [facility] History - Hepatitis A Screen Attestation statement:: This patient has been screened for Hepatitis A risk factors. I have reviewed the patient's past medical history: Yes Medical History: Reports:: Cerebrovascular Accident, Hypertension, Transient Ischemic Attacks (TIA) Denies:: Cancer, Diabetes Mellitus Type 1, Diabetes Mellitus Type 2, Internal Pacemaker, MRSA Other Medical History: Reports: Arthritis, Other. Denies: Hypothyroidism, Liver Disease Comment: Had Stroke in June 2015 Laterality Cases: Bilateral: Tonsillectomy Other Surgeries: Yes: Other (VASECTOMY). No: Pacemaker Amputation: No Fractures: No Comment: vasectomy - Social History Smoking Status: Never smoker # Packs/Day (cigarettes): 0 #Yrs smoked (if former smoker): 0 Alcohol Intake: never Alcohol Intake Frequency:: 0-2 drinks per day Substance Use Type: denies use Occupational Status: other
[2021-04-12 16:02] VITALS: BP 149/95; PULSE 99; RESP 16; TEMP 36.7; O2SAT 97
== END 2021-04-12 16:05 | disposition home or self-care (01) ==
PROVIDERS: Emergency Provider Nurse Practitioner; PCP Nurse Practitioner Family
DX: L60.0 Ingrowing nail (principal); I10 Essential (primary) hypertension; E03.9 Hypothyroidism, unspecified
CPT/HCPCS: G0463; 99202

== ENCOUNTER 2022-05-18 14:22 | Emergency (ER) | payer MEDICARE, MEDICAID, SELFPAY ==
[2022-05-18 14:37] VITALS: BMI 43.4
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
[2022-05-18 15:39] VITALS: BP 138/80; PULSE 85; RESP 18; TEMP 36.6; O2SAT 96; BMI 43.4
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
[2022-05-18 16:31] VITALS: BP 138/80; PULSE 85; RESP 18; TEMP 36.6; O2SAT 96
== END 2022-05-18 16:37 | disposition home or self-care (01) ==
PROVIDERS: Emergency Provider Nurse Practitioner; PCP Nurse Practitioner Family
DX: S22.32XA Fracture of one rib, left side, initial encounter for closed fracture (principal)
CPT/HCPCS: 71101; 99212; G0463

== ENCOUNTER 2022-05-30 09:00 | Outpatient (RCR) | payer MEDICARE, MEDICAID, SELFPAY ==
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
== END 2022-05-30 09:05 | disposition home or self-care (01) ==
LOC: PT 09:00
PROVIDERS: PCP Nurse Practitioner Family; Visit Provider Nurse Practitioner Family
DX: M47.894 Other spondylosis, thoracic region (principal); S29.9XXA Unspecified injury of thorax, initial encounter
CPT/HCPCS: 97010; 97014; 97163; 97535; G0283

== ENCOUNTER 2022-06-02 01:13 | Emergency (ER) | payer MEDICARE, MEDICAID, SELFPAY ==
[2022-06-02] VITALS (14 sets, daily range): BP systolic 112–142; BP diastolic 56–83; PULSE 71–89; RESP 15–16; TEMP 36.6–36.8; O2SAT 91–98; BMI 43.4
--- NOTE | 2022-06-02 01:11 | ECG_ITS ---
APPROVED REPORT Exam: Resting ECG HR:84 bpm ECG Measurements Heart Rate 84 AXES AK 231 P 52 QRSd 73 QRS 56 QT 362 T 83 QTc 403 Conclusion SINUS RHYTHM WITH FIRST DEGREE AV BLOCK LOW QRS VOLTAGE IN PRECORDIAL LEADS Old anteroseptal changes ABNORMAL ECG UNCONFIRMED REPORT Electronically signed by : Chang Garces MD 06/04/2022 15:28:20
--- NOTE | 2022-06-02 01:31 | CT_ITS ---
PROCEDURE INFORMATION: Exam: CT Head Without Contrast Exam date and time: 06/02/2022 1:49 AM Age: 47 years old Clinical indication: Other: Confusion TECHNIQUE: Imaging protocol: Computed tomography of the head without contrast. Radiation optimization: All CT scans at this facility use at least one of these dose optimization techniques: automated exposure control; mA and/or kV adjustment per patient size (includes targeted exams where dose is matched to clinical indication); or iterative reconstruction. COMPARISON: [facility] CT HEAD W/O CONTRAST 12/21/2016 2:08 PM FINDINGS: Brain: Previously described area of low attenuation within the inferomedial left cerebellar hemisphere consistent with encephalomalacia is stable. The cortical/white matter interfaces are preserved throughout the brain. The visualized basilar cisterns are patent. There is no evidence of acute hemorrhage within the brain parenchyma or the subarachnoid space.There is no evidence of mass, mass effect or midline shift. There is mild heterogeneity and patchy areas of bilateral decreased attenuation of the white matter consistent with chronic white matter ischemic change. Cerebral ventricles: The ventricular system is normal in size and distribution. Paranasal sinuses: There is an 18 mm mucous retention cyst or polyp in the inferior left maxillary sinus. The visualized portions of the sinuses are otherwise clear. Mastoid air cells: There is markedly diminished aeration of the mastoid air cells bilaterally suggesting chronic mastoiditis. Orbital cavities: The orbits are normal. Bones/joints: There is no evidence of acute fracture. Soft tissues: No significant soft tissue edema. IMPRESSION: No acute intracranial abnormality. Stable and chronic findings as described.
--- NOTE | 2022-06-02 01:34 | HMH.EDCP ---
Discharge Plan Disposition Patient Disposition: Home, Self-Care Chief Complaint: Chest Pain Prescriptions Prescriptions: No Action hydrocodone-acetaminophen 5-325 mg tablet 1 tab PO Q6H PRN (Reason: pain) Qty: 14 0RF prednisone 20 mg tablet 20 mg PO BID 5 Days Qty: 10 0RF cyclobenzaprine 10 mg tablet 10 mg PO TID PRN (Reason: Muscle Spasm) Qty: 60 0RF lisinopril-hydrochlorothiazide 20-12.5 mg tablet 1 tab PO BID Qty: 60 11RF amlodipine 10 mg tablet 10 mg PO BID Qty: 60 5RF atorvastatin 20 mg tablet 20 mg PO DAILY Qty: 30 11RF carvedilol 12.5 mg tablet 12.5 mg PO BID Qty: 60 11RF Clinical Impressions Clinical Impression: Chest pain, Alcohol intoxication, Obesity Instructions Patient Instructions: DI for Atypical Chest Pain Discharge ED Provider: Chuy Bella Chest Pain HPI General Chief Complaint: Chest Pain Stated Complaint: CP Time Seen by Provider: 06/02/22 01:34 Mode of Arrival: EMS Source of Information: Patient, EMS and Medical Record Limitations: No Limitations Description of Symptoms (Recalled from ER Triage Doc. by RN): Pt called ems tonight after consuming 8 beers. Per pt, he feels dizzy and numb and is having difficulty focusing. Also feels like he is short of air and c/o chest tightness History of Present Illness HPI narrative: chest tightness and sob with dizzyness - no trauma but has been using etoh MD complaint: chest pain indicative of cardiac Onset (ago): hour(s) Duration: intermittent Activity at onset: during rest Pain location: left chest Severity: moderate Quality: dull Pain radiation: none Risk Factors for CAD: Hypertension and Family Hx of CAD Treatments prior to or on arrival for Cardiac Chest Pain: none GHAZAL Score for Non-Stemi Age of Patient: 40-49 years old Heart Rate: 70-89 bpm Systolic Blood Pressure: 100-119 mmHg Serum Creatinine: 0.80-1.19 mg/dl CHF [place] Class: I-No CHF Other Risk Factors: None Non-Stemi Risk Score: 84 Related Data Previous Rx's Medication Instructions Recorded cyclobenzaprine 10 mg tablet 10 mg PO TID PRN Muscle Spasm #60 05/12/22 tabs hydrocodone 5 mg-acetaminophen 325 1 tab PO Q6H PRN pain #14 tabs 05/12/22 mg tablet prednisone 20 mg tablet 20 mg PO BID 5 days #10 tabs 05/12/22 amlodipine 10 mg tablet 10 mg PO BID #60 tabs 05/30/22 atorvastatin 20 mg tablet 20 mg PO DAILY Cholesterol #30 tabs 05/30/22 carvedilol 12.5 mg tablet 12.5 mg PO BID #60 tabs 05/30/22 lisinopril 20 1 tab PO BID #60 tabs 05/30/22 mg-hydrochlorothiazide 12.5 mg tablet Allergies Allergy/AdvReac Type Severity Reaction Status Date / Time bacitracin Allergy Unknown Verified 05/12/22 13:20 [From NEOSPORIN ([id number])] morphine [MORPHINE] Allergy Unknown Verified 05/12/22 13:20 neomycin Allergy Unknown Verified 05/12/22 13:20 [From NEOSPORIN ([id number])] polymyxin B Allergy Unknown Verified 05/12/22 13:20 [From NEOSPORIN ([id number])] PFSH PFS Medical History Abdominal bruit Carotid artery stenosis Daytime sleepiness Family history of coronary artery disease History of stroke HTN (hypertension) HTN (hypertension), benign Hyperlipidemia Hypertension Malignant essential hypertension SOB (shortness of breath) Tachycardia Vitamin D deficiency Surgical History H/O vasectomy Hx of tonsillectomy Social History Smoking Status: Never smoker second hand exposure: No alcohol intake: current substance use type: denies use current occupational status: other Travel in the last 8 weeks: None ROS Obtained: Yes All systems reviewed & no additional complaints except as documented Physical Exam General General appearance: alert and obese Head Head exam: normocephalic Eye Eye exam: Present PERRL and
--- NOTE | 2022-06-02 01:35 | XR_ITS ---
PROCEDURE INFORMATION: Exam: XR Chest Exam date and time: 06/02/2022 1:41 AM Age: 47 years old Clinical indication: Shortness of breath; Additional info: SOA TECHNIQUE: Imaging protocol: Radiologic exam of the chest. Views: 2 views. The COMPARISON: CR XR RIBS LT MIN 3V W CXR1V 05/18/2022 2:45 PM FINDINGS: Lungs: [id number] elevation of the right hemidiaphragm is stable. A few mild streaky markings left lobe are stable dating back to 10/09/2016 suggesting. The lungs appear otherwise clear. No focal areas of consolidation. Pleural spaces: Mild blunting of the left lateral costophrenic angle is stable and may reflect effusion or scarring. Negative for pneumothorax. Heart/Mediastinum: Cardiac silhouette and pulmonary vasculature are within range of normal. Calcified right hilar lymph nodes indicate prior granulomatous disease. Bones/joints: There is no evidence of acute fracture. The thoracic spine demonstrates mild degenerative changes at multiple levels. IMPRESSION: Stable exam. Small left pleural effusion.
[2022-06-02 01:40] LABS: Basophils # 0.1 K/mm3 (0-0.2); Eosinophils # 0.3 K/mm3 (0.0-0.4); Eosinophils % 3.7 % (0.1-12.0); Hematocrit 42.5 % (42.0-52.0); Hemoglobin 14.4 g/dL (14.1-18.0); Lymphocytes # 3.2 K/mm3 (0.7-4.5); Lymphocytes % 38.8 % (10-50); Mean Corpuscular HGB Conc 33.9 g/dL (31.8-35.4); Mean Corpuscular Hemoglobin 30.9 pg (27.0-31.2); Mean Corpuscular Volume 91.2 fl (80-94); Mean Platelet Volume 8.4 fl (7.4-10.4); Monocytes # 0.4 K/mm3 (0.1-1.0); Neutrophils # 4.3 K/mm3 (1.8-7.8); Neutrophils % 51.5 % (37.0-80.0); Platelet Count 319 K/mm3 (142-424); Red Blood Count 4.66 M/mm3 (4.60-6.20); Red Cell Distribution Width 14.3 % (11.5-17.5); White Blood Count 8.3 K/mm3 (4.8-10.8)
[2022-06-02 01:44] LABS: Alanine Aminotransferase 25 U/L (12-78); Albumin/Globulin Ratio 1.3 (1.1-1.8); Alkaline Phosphatase 98 U/L (38-126); Anion Gap 15.9 mEq/L (5-15); Aspartate Amino Transferase 25 U/L (17-59); Bilirubin,Total 0.2 mg/dl (0.2-1.3); Blood Urea Nitrogen 16 mg/dl (9-20); Calcium 8.7 mg/dl (8.4-10.2); Carbon Dioxide 28 mmol/L (22.0-30.0); Chloride 97 mmol/L (98-107); Creatinine Clearance Estimated 110 mL/min (50-200); Estimated Glomerular Filt Rate 90 ml/min (>60); GFR (African American) 109 ML/MIN (>60); Globulin 3.1 g/dL (1.3-3.2); Glucose 137 mg/dl (74-100); Potassium 3.9 mmoL/L (3.5-5.1); Sodium 137 mmol/L (136-145); Total Protein,Serum 7.1 g/dl (6.3-8.2)
--- NOTE | 2022-06-02 01:49 | PC.NURSE ---
Pt gone to RAD
[2022-06-02 01:51] LABS: C-Reactive Protein 16.8 mg/L (0-4)
[2022-06-02 02:03] LABS: Troponin I < 0.01 ng/ml (0.00-0.034)
[2022-06-02 02:04] LABS: Procalcitonin 0.051 ng/mL (0.0-2.0)
[2022-06-02 02:19] LABS: Erythrocyte Sedimentation Rate 30 mm/hr (0-15)
[2022-06-02 02:27] LABS: Ethyl Alcohol 150 mg/dl (0-10)
--- NOTE | 2022-06-02 03:28 | PC.NURSE ---
Pt updated on POC. No needs or complaints voiced at this time.
[2022-06-02 04:41] LABS: Troponin I < 0.01 ng/ml (0.00-0.034)
--- NOTE | 2022-06-02 05:58 | PC.NURSE ---
Pt resting with eyes closed. Call light within reach.
--- NOTE | 2022-06-02 07:18 | PC.NURSE ---
Received report from RENARD Nolasco. Breakfast tray ordered for pt.
--- NOTE | 2022-06-02 07:23 | PC.NURSE ---
pt eating breakfast at this time. no other needs voiced
== END 2022-06-02 07:30 | disposition home or self-care (01) ==
PROVIDERS: Emergency Provider Emergency Medicine; PCP Nurse Practitioner Family
DX: R07.9 Chest pain, unspecified (principal); F10.129 Alcohol abuse with intoxication, unspecified; R42 Dizziness and giddiness; R20.2 Paresthesia of skin; R06.02 Shortness of breath; R00.0 Tachycardia, unspecified; R40.0 Somnolence; I10 Essential (primary) hypertension; I65.29 Occlusion and stenosis of unspecified carotid artery; E78.5 Hyperlipidemia, unspecified; E55.9 Vitamin D deficiency, unspecified; R09.89 Other specified symptoms and signs involving the circulatory and respiratory systems; M62.838 Other muscle spasm; E66.9 Obesity, unspecified; Z79.52 Long term (current) use of systemic steroids; Z79.899 Other long term (current) drug therapy; Z88.5 Allergy status to narcotic agent; Z88.8 Allergy status to other drugs, medicaments and biological substances; Z68.41 Body mass index [BMI] 40.0-44.9, adult; Z82.49 Family history of ischemic heart disease and other diseases of the circulatory system
CPT/HCPCS: 70450; 71046; 80053; 84145; 84484; 85025; 85651; 86140; 93005; 96361; 96374; 99285; J2405

== ENCOUNTER 2023-09-16 20:02 | Emergency (ER) | payer MEDICARE, MEDICAID, SELFPAY ==
[2023-09-16 20:09] VITALS: BP 160/98; PULSE 92; RESP 18; TEMP 36.9; O2SAT 98; BMI 44.7
--- NOTE | 2023-09-16 20:39 | CT_ITS ---
PROCEDURE INFORMATION: Exam: CT Abdomen And Pelvis With Contrast Exam date and time: 09/16/2023 9:10 PM Age: 48 years old Clinical indication: Abdominal pain; Patient HX: States pain for a couple weeks, states pain is worse tonight; Additional info: Atraumatic R CVA pain TECHNIQUE: Imaging protocol: Computed tomography of the abdomen and pelvis with contrast. Radiation optimization: All CT scans at this facility use at least one of these dose optimization techniques: automated exposure control; mA and/or kV adjustment per patient size (includes targeted exams where dose is matched to clinical indication); or iterative reconstruction. Contrast material: ISOVUE; Contrast volume: 75 ml; Contrast route: IV; REPORTING DATA: Count of CT and Cardiac NM exams in prior 12 months: This patient has received 0 known CTs and 0 known cardiac nuclear medicine studies in the 12 months prior to the current study. COMPARISON: US CA RENAL ARTERY DUPLEX 09/02/2019 7:30 AM FINDINGS: Lungs: Granulomatous calcification in the right lung base. Minor peripheral fibrosis or subsegmental atelectasis in the lung bases. Heart: Heart size normal. Mediastinal space: The visualized distal esophagus is largely contracted without gross abnormality. Liver: Mild hepatomegaly measuring 22 cm craniocaudal. Mild generalized fatty infiltration of the liver. Normal contour. No mass lesions. No intrahepatic biliary ductal dilatation. Granulomatous calcification in the caudate lobe. Gallbladder and bile ducts: The gallbladder is contracted but otherwise unremarkable. Nondilated common bile duct. Pancreas: Mild pancreatic atrophy without acute abnormality. No pancreatic ductal dilatation. Spleen: Normal. No splenomegaly. Adrenal glands: Normal. No adrenal mass. Kidneys and ureters: Slight bilateral symmetrical perinephric stranding which is nonspecific and age indeterminate. This may relate to perirenal scarring or edema. Clinical/laboratory correlation is recommended to exclude evidence of medical renal disease. No hydronephrosis or hydroureter. No urinary tract stones are identified. Stomach and bowel: The stomach contains moderate food content but is otherwise unremarkable. The small bowel is nondilated with no gross abnormality. No acute colonic abnormalities. There are few diverticula present in the distal colon without evidence of acute diverticulitis. Appendix: The appendix is normal in caliber and demonstrates no evidence of appendicitis. Intraperitoneal space: No peritoneal free fluid or air. Vasculature: No acute process. No abdominal aortic aneurysm. Lymph nodes: No adenopathy. Urinary bladder: The urinary bladder is largely contracted with wall thickening which may relate to its contracted status. Mild adjacent stranding. Correlate with UA for evidence of cystitis. Reproductive: Unremarkable as visualized. Bones/joints: No acute osseous abnormalities. 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 Severe canal stenosis L3-L4 as well. Mild-moderate canal stenosis L1-L2, L4-L5 and L5-S1. Soft tissues: Small bilateral fat containing inguinal hernias with no bowel herniation or features of strangulation. IMPRESSION: 1. No definite acute process. 2. Urinary bladder is largely contracted with suspected mild wall thickening and adjacent stranding possibly changes of cystitis, correlate with UA. 3. Slight symmetrical perinephric stranding bilaterally, nonspecific and age indeterminate, possibly mild perirenal scarring or edema. No hydronephrosis or urolithiasis. No changes of pyelonephritis. 4. Lumbar degenerative changes and congenitally short pedicles producing m
--- NOTE | 2023-09-16 20:41 | HMH.EDGENADL ---
Discharge Plan Disposition Patient Disposition: Home, Self-Care Prescriptions Prescriptions: New lidocaine 5 % adhesive patch,medicated 1 patch topical DAILY Qty: 15 0RF Rx Instructions: leave on most painful area for up to 12 hrs methocarbamol 500 mg tablet 1,000 mg PO Q8H PRN (Reason: back spasm) Qty: 24 0RF No Action lisinopril-hydrochlorothiazide 20-12.5 mg tablet See Rx Instructions .ROUTE .COMPLEX Qty: 180 4RF Dose Instruction: Take 1 tablet by mouth twice daily Rx Instructions: Take 1 tablet by mouth twice daily atorvastatin 20 mg tablet See Rx Instructions .ROUTE .COMPLEX Qty: 90 4RF Dose Instruction: TAKE 1 TABLET BY MOUTH ONCE DAILY FOR CHOLESTEROL Rx Instructions: TAKE 1 TABLET BY MOUTH ONCE DAILY FOR CHOLESTEROL carvedilol 12.5 mg tablet See Rx Instructions .ROUTE .COMPLEX Qty: 180 4RF Dose Instruction: Take 1 tablet by mouth twice daily Rx Instructions: Take 1 tablet by mouth twice daily amlodipine 10 mg tablet See Rx Instructions .ROUTE .COMPLEX Qty: 120 4RF Dose Instruction: Take 1 tablet by mouth twice daily Rx Instructions: Take 1 tablet by mouth twice daily Referrals Follow up/Referrals: Scott Guerrero APRN [Primary Care Provider] - See instructions Activity Restrictions/Add. Instructions Additional Instructions/Restrictions: At this time it was felt you are safe to be discharged home. If new or worsening symptoms please do not hesitate to return the emergency department. If symptoms persist please follow-up with your family doctor as discussed. Please take your medications as prescribed. Clinical Impressions Clinical Impression: Back pain, Degenerative disc disease, Central stenosis of spinal canal Instructions Patient Instructions: DI for Low Back Pain Discharge ED Provider: Jasper Andrade General Adult HPI General Chief complaint: Back Pain/Injury Stated complaint: back pain Time Seen by Provider: 09/16/23 20:13 Mode of Arrival: Ambulatory Source of Information: Patient Limitations: No Limitations Description of Symptoms (Recalled from ER Triage Doc. by RN): Patient c/o int back pain x3 weeks. Patient states that he doesn't know how he injured it and that he awoke it. Patient states that it is worse today. History of Present Illness HPI narrative: Patient is a 48-year-old male past medical history of hypertension who presents emergency department for evaluation of back pain. It has been intermittent, subacute, last 3 weeks, right-sided, mid low back shooting up into his CVA. It does not shoot down his legs, no lower extremity weakness, no urinary incontinence, no midline pain, no dysuria. He is concerned it may be his kidney. No other acute complaints at this time. Related Data Previous Rx's Medication Instructions Recorded amlodipine 10 mg tablet See Rx Instructions .Route 07/30/23 .COMPLEX #120 tabs atorvastatin 20 mg tablet See Rx Instructions .Route 07/30/23 .COMPLEX #90 tabs carvedilol 12.5 mg tablet See Rx Instructions .Route 07/30/23 .COMPLEX #180 tabs lisinopril 20 See Rx Instructions .Route 07/30/23 mg-hydrochlorothiazide 12.5 mg .COMPLEX #180 tabs tablet lidocaine 5 % topical patch 1 patch topical DAILY back pain 09/16/23 #15 ea methocarbamol 500 mg tablet 1,000 mg PO Q8H PRN back spasm #24 09/16/23 tabs Allergies Allergy/AdvReac Type Severity Reaction Status Date / Time bacitracin Allergy Unknown Verified 03/08/23 14:53 [From NEOSPORIN ([id number])] morphine [MORPHINE] Allergy Unknown Verified 03/08/23 14:53 neomycin Allergy Unknown Verified 03/08/23 14:53 [From NEOSPORIN ([id number])] polymyxin B Allergy Unknown Verified 03/08/23 14:53 [From NEOSPORIN ([id number])] [facility] Disclaimer: The information contained in this section may have been updated after the patient was seen, as this information can b
[2023-09-16 21:09] LABS: Basophils # 0.1 K/mm3 (0-0.2); Basophils % 0.5 % (0.1-2.0); Eosinophils # 0.2 K/mm3 (0.0-0.4); Eosinophils % 1.9 % (0.1-12.0); Hematocrit 46.7 % (42.0-52.0); Hemoglobin 15.8 g/dL (14.1-18.0); Lymphocytes # 2.3 K/mm3 (0.7-4.5); Lymphocytes % 20.7 % (10-50); Mean Corpuscular HGB Conc 33.8 g/dL (31.8-35.4); Mean Corpuscular Hemoglobin 30.5 pg (27.0-31.2); Mean Corpuscular Volume 90.2 fl (80-94); Mean Platelet Volume 8.2 fl (7.4-10.4); Monocytes # 0.7 K/mm3 (0.1-1.0); Monocytes % 6.1 % (1.7-9.3); Neutrophils # 7.8 K/mm3 (1.8-7.8); Neutrophils % 70.9 % (37.0-80.0); Platelet Count 240 K/mm3 (142-424); Red Blood Count 5.18 M/mm3 (4.60-6.20); Red Cell Distribution Width 13.9 % (11.5-17.5)
[2023-09-16 21:13] LABS: Microscopic, Urine URINE MICROSCOPIC (MICROSCOPIC)
[2023-09-16 21:14] LABS: Appearance,Urine CLEAR (Clear); Bilirubin,Urine Negative (Negative); Blood, Urine Negative (Negative); Color,Urine YELLOW (Yellow); Glucose,Urine (UA) Negative (Negative); Ketones,Urine TRACE (Negative); Leukocyte Esterase,Urine Negative (Negative); Nitrate,Urine Negative (Negative); Protein,Urine Negative (Negative); Specific Gravity, Urine 1.025 (1.005-1.030)
[2023-09-16 21:14] LABS: Alanine Aminotransferase 32 U/L (12-78); Albumin Level 4.3 g/dl (3.5-5.0); Albumin/Globulin Ratio 1.2 (1.1-1.8); Alkaline Phosphatase 75 U/L (38-126); Anion Gap 11.2 mEq/L (5-15); Aspartate Amino Transferase 29 U/L (17-59); Bilirubin,Total 0.4 mg/dl (0.2-1.3); Blood Urea Nitrogen 21 mg/dl (9-20); Carbon Dioxide 28 mmol/L (22.0-30.0); Chloride 101 mmol/L (98-107); Creatinine Clearance Estimated 98 mL/min (50-200); Estimated Glomerular Filt Rate 79 ml/min (>60); GFR (African American) 96 ML/MIN (>60); Globulin 3.7 g/dL (1.3-3.2); Glucose 118 mg/dl (74-100); Potassium 4.2 mmoL/L (3.5-5.1); Sodium 136 mmol/L (136-145)
[2023-09-16 21:53] VITALS: BP 147/77; PULSE 74; RESP 16; O2SAT 96
[2023-09-16 21:54] LABS: Squamous Epithelial Cell,Urine Occasional #/hpf (0-5)
[2023-09-16 22:00] VITALS: BP 140/81; PULSE 76; O2SAT 93
[2023-09-16 22:13] VITALS: BP 140/81; PULSE 84; RESP 18; TEMP 37.2; O2SAT 92
== END 2023-09-16 22:22 | disposition home or self-care (01) ==
PROVIDERS: Emergency Provider Emergency Medicine; PCP Nurse Practitioner Family
DX: M48.02 Spinal stenosis, cervical region (principal); M51.86 Other intervertebral disc disorders, lumbar region
CPT/HCPCS: 74177; 80053; 81001; 85025; 96374; 96375; 99285; J0131; Q9967

== ENCOUNTER 2023-11-15 12:21 | Outpatient (CLI) | payer MEDICARE, MEDICAID, SELFPAY ==
[2023-11-15 12:49] LABS: Basophils % 0.4 % (0.1-2.0); Eosinophils # 0.1 K/mm3 (0.0-0.4); Eosinophils % 1.9 % (0.1-12.0); Hematocrit 46.9 % (42.0-52.0); Hemoglobin 15.2 g/dL (14.1-18.0); Lymphocytes # 2.1 K/mm3 (0.7-4.5); Lymphocytes % 29.6 % (10-50); Mean Corpuscular HGB Conc 32.4 g/dL (31.8-35.4); Mean Corpuscular Hemoglobin 30.3 pg (27.0-31.2); Mean Corpuscular Volume 93.6 fl (80-94); Mean Platelet Volume 8.4 fl (7.4-10.4); Monocytes # 0.4 K/mm3 (0.1-1.0); Monocytes % 5.9 % (1.7-9.3); Neutrophils # 4.3 K/mm3 (1.8-7.8); Neutrophils % 62.2 % (37.0-80.0); Platelet Count 251 K/mm3 (142-424); Red Blood Count 5.01 M/mm3 (4.60-6.20); Red Cell Distribution Width 14.5 % (11.5-17.5); White Blood Count 6.9 K/mm3 (4.8-10.8)
[2023-11-15 13:29] LABS: Alanine Aminotransferase 29 U/L (12-78); Albumin/Globulin Ratio 1.4 (1.1-1.8); Alkaline Phosphatase 108 U/L (38-126); Anion Gap 10.2 mEq/L (5-15); Aspartate Amino Transferase 23 U/L (17-59); Bilirubin,Direct 0.2 mg/dl (0.0-0.4); Bilirubin,Indirect 0.2 mg/dL (0.0-0.9); Bilirubin,Total 0.4 mg/dl (0.2-1.3); Bilirubin,Unconjugated 0.1 mg/dL (0.0-1.1); Blood Urea Nitrogen 15 mg/dl (9-20); Calcium 8.7 mg/dl (8.4-10.2); Carbon Dioxide 33 mmol/L (22.0-30.0); Chloride 102 mmol/L (98-107); Estimated Glomerular Filt Rate 120 ml/min (>60); GFR (African American) 145 ML/MIN (>60); Globulin 2.8 g/dL (1.3-3.2); Glucose 103 mg/dl (74-100); Potassium 4.2 mmoL/L (3.5-5.1); Sodium 141 mmol/L (136-145); Total Protein,Serum 6.8 g/dl (6.3-8.2)
[2023-11-15 13:45] LABS: 25-OH Vitamin D, Total 16.1 ng/mL (30-100)
[2023-11-15 14:01] LABS: Prostate Specific Ag Screen 0.5 ng/ml (0.0-4.0); Thyroid Stimulating Hormone 1.67 uIU/mL (0.465-4.68)
[2023-11-15 14:18] LABS: Hemoglobin A1C 6.2 % (4.0-6.0)
== END 2023-11-15 23:59 ==
LOC: LAB.DROPOF 12:21
PROVIDERS: PCP Nurse Practitioner Family; Visit Provider Nurse Practitioner Family
DX: Z01.89 Encounter for other specified special examinations (principal); Z12.5 Encounter for screening for malignant neoplasm of prostate; R73.03 Prediabetes; E78.5 Hyperlipidemia, unspecified; E55.9 Vitamin D deficiency, unspecified; Z79.899 Other long term (current) drug therapy
CPT/HCPCS: 80053; 80076; 82306; 83036; 84443; 85025; G0103

== ENCOUNTER 2023-11-26 12:07 | Outpatient (CLI) | payer MEDICARE, MEDICAID, SELFPAY ==
--- NOTE | 2023-11-26 | CA_ITS ---
APPROVED REPORT Exam: Pharmacologic Technologist: Sherry Mena, Ht: 6 ft 0 in Wt: 334 lbs BSA: 2.65 m2 HR: 57 bpm BP: 142/73 mmHg Rhythm: NSR Medical History Medications: Amlodipine,,,,, Atorvastatin,,,,, Carvedilol,,,,, Methocarbamol,,,,, SilDENAFIL,,,,, Lisinopril-HCTZ,,,,, Stress Test Details Test: LEXISCAN Reason for pharmacologic stress test: physical limitation. HR Resting HR: 58 bpm Max Heart Rate (APMHR): 171 bpm Max HR Achieved: 91 bpm Target HR (85% APMHR): 145 bpm % of APMHR: 53 Recovery HR: 72 bpm BP Resting BP: 142.0/73.0 mmHg Max BP: 149.0/85.0 mmHg Recovery BP: 149.0/83.0 mmHg ECG Resting ECG: NSR Stress ECG: No significant ST changes Arrhythmia: None Clinical Exercise duration: 04:01 min Highest Stage Achieved: Stress ECG Conclusion Symptoms: SOA Arrhythmias/Ectopy: None ST-T Changes: Unremarkable Lexiscan stress test. Test Summary REST . . . . . . . Resting REST 06:53 . . 58 . 142/ 73 . . Stage 1 01:00 . . 89 . . . . Stage 2 01:00 . . 86 . . . . Stage 3 01:00 . . 71 . 142/ 81 . . Stage 4 01:00 . . 71 . 140/ 84 . . Stage 4 01:01 . . 71 . 140/ 84 . Stop exercise at 04:01 RECOVERY 01:00 . . 81 . 144/ 79 . . RECOVERY 02:00 . . 75 . 144/ 79 . . RECOVERY 02:17 . . 67 . 149/ 85 . . Electronically signed by : Robyn Devries MD 12/19/2023 12:53:27
--- NOTE | 2023-11-26 12:07 | NM_ITS ---
APPROVED REPORT Exam: Nuclear Stress Test Indication: soa Patient Location: Outpatient Stress Tech: Sherry Marrero [place] Tech:JUANPABLO Damian, RT (R)(N) Ht: 6 ft 0 in Wt: 330 lbs HR: 58 bpm BP: 142/73 mmHg BSA: 2.64 m2 Rhythm: NSR TID: 1.25 History: soa Procedure: Patient received 0.4 mg of intravenous Lexiscan, resting heart rate 58 bpm, resting blood pressure 142/73 mmHg, with Lexiscan maximum heart rate achieved was 91 bpm which is 85 % of the maximum predicted heart rate and blood pressure was 149/85 mmHg. With Lexiscan, patient denied any complaint of chest pain. The pt was not able to lay on his belly for prone images. Cardiac Stress and Resting SPECT Images: Cardiac Stress and Resting SPECT images were obtained using technetium 99m Myoview 31.8 mCi stress and 10.64 mCi at rest. The patient could not lie on his abdomen for prone stress imaging. This may affect the diagnostic interpretation of the study findings. Resting and stress imaging in supine and prone positions demonstrate a small-sized, mild, reversible perfusion defect in the inferior LV wall. There is increased transient ischemic dilatation ratio (TID 1.25), suggestive of possible multivessel disease or balanced ischemia. Gated imaging demonstrates normal global and regional LV systolic function. LVEF is calculated at 59%. Conclusion: Small-sized, mild, reversible perfusion defect in the inferior LV wall. Findings are suggestive of reversible ischemia. There is also increased transient ischemic dilatation ratio (TID 1.25), suggestive of possible multivessel disease or balanced ischemia. Gated imaging demonstrates normal global and regional LV systolic function. LVEF is calculated at 59%. Electronically signed by : Robyn Devries MD 11/27/2023 18:07:20
--- NOTE | 2023-11-26 13:02 | CA_ITS ---
APPROVED REPORT EXAM: Comprehensive 2D, Doppler, and color-flow Echocardiogram Scene Shifter: Zoe Cavazos RT(R) Ht: 6 ft 0 in Wt: 330lbs BSA: 2.64 BP: 172/110 mmHg Indications: SOA, CP, HTN, ENRIQUE Echo Enhancing Agent Indication: Endocardial border delineation Agent(s) / Amount(s) Used: Definity 2 cc M-Mode Dimensions RVDd 4.25 cm (0.9-2.6) LA Diam 4.27 cm (1.9-4.0) LVDd 5.88 cm (3.5-5.7) LVDs 5.31 cm (3.5-5.7) IVSd 1.19 cm (0.6-1.1) PWd 1.19 cm (0.6-1.1) EF (Teich) 20.90% FS 9.70% EDV (Teich) 171.90 mL ESV (Teich) 135.90 mL LV Diastology E Decel Time 177 (160-240 msec) E/A Ratio 1.2 Mitral Valve MV E Max Adrian. 88.0 (40-130 cm/s) MV A Velocity 73.0 (40-130 cm/s) E/A Ratio 1.21 MV PHT 52.0 ms Left Ventricle The left ventricle is normal size. The left ventricular systolic function is normal. The left ventricular ejection fraction is within the normal range. There is increased LV wall thickness. Diastolic function is indeterminate. There is normal LV segmental wall motion. No left ventricle thrombus noted on this study. LVEF is 60%. Right Ventricle The right ventricle is moderately dilated. The right ventricle is moderately hypokinetic. Atria The left atrium size is normal. The right atrium size is normal. The interatrial septum is not well-visualized. Aortic Valve The aortic valve leaflets are not well-visualized. There is no aortic valvular stenosis. No aortic regurgitation is present. Mitral Valve The mitral valve leaflets are not well-visualized. No evidence of mitral valve stenosis. There is no mitral valve regurgitation noted. Tricuspid Valve The tricuspid valve leaflets are not well-visualized. Trace tricuspid regurgitation. There is insufficient TR jet to estimate RVSP. Pulmonic Valve The pulmonary valve is normal in structure. Trace pulmonic regurgitation. Great Vessels The aortic root is not well-visualized. The IVC is not well-visualized. Pericardium There is no pericardial effusion. Other Information Study Quality: Technically Difficult Conclusion Technically difficult study due to poor acoustic windows Normal LV systolic function. Moderate RV dilation with moderate reduction in RV function. The valves leaflets morphologies are not well-visualized due to technically difficult study, but overall no evidence of significant valvular stenosis or regurgitation on color or spectral Doppler. Electronically signed by : Robyn Devries MD 11/28/2023 22:21:07
[2023-11-26] MEDS: REGADENOSON 0.4MG/5ML SYRINGE 0.400000000000000022 MG IV (13:53)
[2023-11-26] MEDS: SODIUM CHLORIDE 0.9% 10ML SYR (RAD ONLY) 10 ML IV ×2 (13:53)
[2023-11-26] MEDS: ISOTOPE MYOVIEW (PER STUDY) 1 DOSE IV (13:53)
[2023-11-26] MEDS: DEFINITY US ECHO CONTRAST 2ML INJ 2 MG IV (14:44)
== END 2023-11-26 23:59 ==
LOC: RAD 12:07
PROVIDERS: PCP Nurse Practitioner Family; Visit Provider Nurse Practitioner Family
DX: I10 Essential (primary) hypertension (principal); R06.02 Shortness of breath; R07.89 Other chest pain; R94.31 Abnormal electrocardiogram [ECG] [EKG]
CPT/HCPCS: 78451; 93017; 93018; 93306; A9502; J2785; Q9957

== ENCOUNTER 2023-12-04 13:47 | Emergency (ER) | payer MEDICARE, MEDICAID, SELFPAY ==
[2023-12-04 13:50] VITALS: BP 117/69; PULSE 82; RESP 18; TEMP 36.8; O2SAT 94; BMI 44.7
--- NOTE | 2023-12-04 13:59 | XR_ITS ---
PROCEDURE INFORMATION: Exam: XR Right Ankle Exam date and time: 12/04/2023 2:00 PM Age: 48 years old Clinical indication: Pain; Ankle; Right; Additional info: Fall TECHNIQUE: Imaging protocol: Radiologic exam of the right ankle. Views: 3 or more views. COMPARISON: CR ANKCMRT XR ankle RT min 3V 11/11/2018 12:27 PM FINDINGS: Bones/joints: No visible fracture or dislocation. The mortise joint space is symmetric. Achilles tendon enthesophyte and calcaneal spur noted Soft tissues: Circumferential soft tissue swelling about the ankle noted. IMPRESSION: No visible fracture or dislocation.
--- NOTE | 2023-12-04 13:59 | XR_ITS ---
FINAL REPORT CLINICAL HISTORY: fall COMPARISON: 11/04/2018 FINDINGS: Right foot Three views were obtained. There is no acute fracture or dislocation. There are moderate degenerative changes. Calcaneal spurs are identified. No soft tissue abnormality is identified. IMPRESSION: Moderate degenerative changes. Reviewed, Interpreted and Dictated by Joaquin Palmer III, MD Transcribed by Kinza Courtney Authenticated and [facility]
--- NOTE | 2023-12-04 14:07 | EXP.UTC ---
Discharge Plan Disposition Patient Disposition: Home, Self-Care Condition: Good Prescriptions Prescriptions: New methocarbamol 500 mg tablet 500 mg PO TID PRN (Reason: muscle spasm) Qty: 12 0RF No Action amlodipine 10 mg tablet See Rx Instructions .ROUTE .COMPLEX Qty: 120 3RF Dose Instruction: Take 1 tablet by mouth twice daily Rx Instructions: Take 1 tablet by mouth twice daily carvedilol 12.5 mg tablet See Rx Instructions .ROUTE .COMPLEX Qty: 180 1RF Dose Instruction: Take 1 tablet by mouth twice daily Rx Instructions: Take 1 tablet by mouth twice daily lisinopril-hydrochlorothiazide 20-12.5 mg tablet See Rx Instructions .ROUTE .COMPLEX Qty: 180 1RF Dose Instruction: Take 1 tablet by mouth twice daily Rx Instructions: Take 1 tablet by mouth twice daily sildenafil 100 mg tablet 100 mg PO DAILY PRN (Reason: sexual activity) Qty: 30 0RF Rx Instructions: administer 30 minutes to 4 hours before activity atorvastatin 20 mg tablet See Rx Instructions .ROUTE .COMPLEX Qty: 90 4RF Dose Instruction: TAKE 1 TABLET BY MOUTH ONCE DAILY FOR CHOLESTEROL Rx Instructions: TAKE 1 TABLET BY MOUTH ONCE DAILY FOR CHOLESTEROL Referrals Follow up/Referrals: Scott Guerrero APRN [Primary Care Provider] - See instructions Marcela Lucio APRN [Nurse Practitioner] - See instructions Dariela Orozco DPM [Staff Physician] - See instructions Activity Restrictions/Add. Instructions Additional Instructions/Restrictions: *weight bearing as tolerated *RICE, Rest the extremity, Ice 15-20 minutes 3-4 times daily, Compress- wear the ubaldo wrap as discussed as much as possible to help reduce swelling and pain, Elevate the extremity when at rest *Walking boot is for support and help control swelling, use it except in the shower. Be sure that is not to tight but not to loose either *Elevate when resting? *Ibuprofen 600-800mg every 6-8 hours as needed for pain an inflammation if you can take it If need something more can take Tylenol in between doses of Ibuprofen to help Immediately follow up with your family doctor for new or worsening of symptoms, or no noticeable improvement over the next 3-5 days Clinical Impressions Clinical Impression: Ankle sprain Instructions Patient Instructions: How to Use Crutches, Ankle Sprain, DI for Ankle Sprain Discharge ED Provider: Ranjana Bae [facility] [place] General Stated complaint: [id number]@home, pain in Rt ankle/leg Mode of Arrival: Ambulatory Source of Information: Patient Limitations: No Limitations Time Seen by Provider: 12/04/23 14:07 Description of Symptoms (Recalled from Triage Doc. by RN): Pt slid on mud on 12/02/2023. He has pain in right ankle. HEENT Symptoms (Recalled from RN notes): Yes Resp Symptoms (Recalled from RN notes): No Skin Symptoms (Recalled from RN notes): No MS Symptoms (Recalled from RN notes): No Functional Status (Recalled from RN notes): n/a History of Present Illness Provider Complaint: Patient states that he was walking to his truck a couple days ago and slipped in the mud and fell and hurt his right ankle and foot States that since falling he has been having pain in his right ankle and foot and hurts when he tries to walk on it so today when it was still hurting him he came in to get it checked also requesting refill on Methocarbamol states helps with his muscle pain in his back and he is out Related Data Previous Rx's Medication Instructions Recorded atorvastatin 20 mg tablet See Rx Instructions .Route 07/30/23 .COMPLEX #90 tabs amlodipine 10 mg tablet See Rx Instructions .Route 11/15/23 .COMPLEX #120 tabs carvedilol 12.5 mg tablet See Rx Instructions .Route 11/15/23 .COMPLEX #180 tabs lisinopril 20 See Rx Instructions .Route 11/15/23 mg-hydrochlorothiazide 12.5 mg .COMPLEX #180 tabs tablet sildenafil 100 mg tablet 100 mg PO DAILY PRN sexual 11/15/23 activity #30 tabs methocarbamol 500 mg tablet 500 mg PO TID PRN muscle spasm #12 12/04/23 tabs Allergies Allergy/AdvReac Type Severity Reaction Status Date / Time bacitracin Allergy Unknown Verified 11/27/23 13:49 [From NEOSPORIN ([id number])] morphine [MORPHINE] Allergy Unknown Verified 11/27/23 13:49 neomycin Allergy Unknown Verified 11/27/23 13:49 [From NEOSPORIN ([id number])] polymyxin B Allergy Unknown Verified 11/27/23 13:49 [From NEOSPORIN ([id number])] Worker's Comp Is this a Worker's Comp case?: No [facility] [place] Disclaimer: The information contained in this section may have been updated after the patient was seen, as this information can be updated by other users. Medical History (Updated 12/04/23 @ 16:19 by Ranjana Bae APRN) Edema of both lower extremities Abnormal nuclear cardiac imaging test Abnormal electrocardiogram [ECG] [EKG] Hyperlipidemia Hypertension History of stroke Malignant essential hypertension Daytime sleepiness Vitamin D deficiency Carotid artery stenosis Family history of coronary artery disease SOB (shortness of breath) Tachycardia HTN (hypertension) Abdominal bruit HTN (hypertension), benign Surgical History H/O vasectomy Hx of tonsillectomy Social History Smoking Status: Never smoker second hand exposure: No alcohol intake: current substance use type: denies use current occupational status: other Travel in the last 8 weeks: None ROS Obtained: Yes All systems reviewed & no additional complaints except as documented and Yes Systems reviewed as appropriate & no additional complaints except as documented Constitutional Constitutional: Reports system reviewed and no additional complaints, except as documented and Reports as per HPI ENT Ears, Nose, Mouth, and Throat: Reports system reviewed and no additional complaints, except as documented and Reports as per HPI Cardiovascular Cardiovascular: Reports system reviewed and no additional complaints, except as documented and Reports as per HPI Respiratory Respiratory: Reports system reviewed and no additional complaints, except as documented and Reports as per HPI Musculoskeletal Musculoskeletal: Reports system reviewed and no additional complaints, except as documented and Reports as per HPI Comments: Pain and swelling in right ankle and foot after falling 2 days ago and landing on it Physical Exam General General appearance: alert and in no apparent distress Respiratory Respiratory exam: Present normal lung sounds bilaterally; Absent respiratory distress or wheezes Cardiovascular Cardiovascular exam: Present regular rate, normal rhythm and normal heart sounds Expanded Lower Extremity Exam Right: Ankle exam: Present tenderness and swelling Foot/toe exam: Present tenderness and swelling Gait: not tested/not observed Neurological Exam Neurological exam: Present alert, oriented X3 and normal gait Medical Decision Making Alex Inquiry Pt receiving controlled substance: No Alex was queried for this patient: No Vital Signs: 12/04/23 13:50 Temperature 98.3 F Temperature Source Oral Pulse Rate [Right Radial] 82 Respiratory Rate 18 Blood Pressure [Right Arm] 117/69 Blood Pressure Mean [Right Arm] 85 Blood Pressure Source [Right Arm] Automatic Cuff Blood Pressure Position [Right Arm] Sitting 02 Sat by Pulse Oximetry 94 L Oxygen Delivery Method Room Air Orders (Tests/Meds): ORDERS Category Date Time Status Ankle XR -Right minimum 3 Views [XR ankle RT min 3V] Exams 12/04/23 13:59 Ordered Stat XR foot RT min 3V Stat Exams 12/04/23 13:59 Ordered Radiology Data #1: Image(s): Ankle Image Reviewed: Yes I have reviewed radiologist's interpretation no visible fracture or dislocation #2: Image(s): Foot/Toes Image Reviewed: Yes I have reviewed radiologist's interpretation Moderate degenerative changes Procedures Orthopedic Splinting/Casting Injury #1: Side: right Lower Extremity Injury Location: ankle and foot Lower Extremity Immobilizer: boot orthosis Other Orthopedic Equipment: crutches Post Cast/Splinting Neuro Status: intact and no change Post Cast/Splinting Vasc Status: intact and no change
[2023-12-04 16:28] VITALS: BP 117/69; PULSE 82; RESP 18; TEMP 36.8; O2SAT 94
== END 2023-12-04 16:28 | disposition home or self-care (01) ==
PROVIDERS: Emergency Provider Nurse Practitioner; PCP Nurse Practitioner Family
DX: S93.401A Sprain of unspecified ligament of right ankle, initial encounter (principal); M79.671 Pain in right foot; E78.5 Hyperlipidemia, unspecified; I10 Essential (primary) hypertension; I65.29 Occlusion and stenosis of unspecified carotid artery; W01.0XXA Fall on same level from slipping, tripping and stumbling without subsequent striking against object, initial encounter
CPT/HCPCS: 73610; 73630; 99212; 99214; G0463

== ENCOUNTER 2024-03-31 14:54 | Emergency (ER) | payer MEDICARE, MEDICAID, SELFPAY ==
[2024-03-31 15:10] VITALS: BP 149/94; PULSE 83; RESP 20; TEMP 36.8; O2SAT 96; BMI 44.7
--- NOTE | 2024-03-31 15:39 | ED_ITS ---
Discharge Plan Disposition Patient Disposition: Home, Self-Care Condition: Good Prescriptions Prescriptions: New mupirocin 2 % ointment 1 applic topical TID 10 Days Qty: 22 0RF Rx Instructions: apply to skin around toenail on left great toe clindamycin HCl 300 mg capsule 300 mg PO Q6H Qty: 40 0RF methylprednisolone [Medrol (Oc)] 4 mg tablets,dose pack See Rx Instructions .Route .COMPLEX 6 Days Qty: 21 0RF Rx Instructions: taper pack; No Action amlodipine 10 mg tablet See Rx Instructions .ROUTE .COMPLEX Qty: 120 3RF Dose Instruction: Take 1 tablet by mouth twice daily Rx Instructions: Take 1 tablet by mouth twice daily carvedilol 12.5 mg tablet See Rx Instructions .ROUTE .COMPLEX Qty: 180 1RF Dose Instruction: Take 1 tablet by mouth twice daily Rx Instructions: Take 1 tablet by mouth twice daily lisinopril-hydrochlorothiazide 20-12.5 mg tablet See Rx Instructions .ROUTE .COMPLEX Qty: 180 1RF Dose Instruction: Take 1 tablet by mouth twice daily Rx Instructions: Take 1 tablet by mouth twice daily atorvastatin 20 mg tablet See Rx Instructions .ROUTE .COMPLEX Qty: 90 4RF Dose Instruction: TAKE 1 TABLET BY MOUTH ONCE DAILY FOR CHOLESTEROL Rx Instructions: TAKE 1 TABLET BY MOUTH ONCE DAILY FOR CHOLESTEROL Referrals Follow up/Referrals: Scott Guerrero APRN [Primary Care Provider] - See instructions Dariela Orozco DPM [Staff Physician] - 04/07/24 10:45 am (follow up as scheduled and sooner if any worsening of symptoms) Activity Restrictions/Add. Instructions Additional Instructions/Restrictions: *Start antibiotic(s) immediately and be sure to take as ordered for the FULL length of time although you may be feeling better or start to see improvement in the next 24-48 hours *Monitor closely. Outlined redness so that you can monitor easier. Follow up immediately for new or worsening symptoms including but not limited to redness, swelling, streaking from site fever or chills. *Warm compress 15 minutes 3-4 times day *Never squeeze or pop these on your own. Seek immediate medical attention next time this occurs *Monitor Temp. Tylenol every 4 hours as needed and ibuprofen every 6 hours as needed (as long as your primary care doctor has told you that it is ok to take both. For fever, aches, pain. ER if no less that 101 despite Tylenol and ibuprofen ?Follow up Podiatry as scheduled and sooner if any worsening of symptoms Podiatry will call you with your Lab results Clinical Impressions Clinical Impression: Infection of toe Instructions Patient Instructions: Clindamycin, Mupirocin Discharge ED Provider: Ranjana Bae [facility] [place] General Stated complaint: left big toe swollen Mode of Arrival: Ambulatory Source of Information: Patient Limitations: No Limitations Time Seen by Provider: 03/31/24 15:40 Description of Symptoms (Recalled from Triage Doc. by RN): PATIENT C/O SWELLING AND REDNESS TO LEFT GREAT TOE THAT STARTED TODAY HEENT Symptoms (Recalled from RN notes): No Resp Symptoms (Recalled from RN notes): No Skin Symptoms (Recalled from RN notes): No MS Symptoms (Recalled from RN notes): Yes Functional Status (Recalled from RN notes): WNL History of Present Illness Provider Complaint: Patient states that he was cutting his toe nail on his left great toe yesterday and cut it into the quick and it bleed for several minutes before he could get it to stop States finally got it stopped and then went fishing and his feet was sweating and today he noticed he was having some swelling and redness in the joint just below his toenail and having swelling in his left great toe and felt like it was trying to move into his foot States he was worried about infection so he came in to get it checked states he has had gout before but this is different and doesnt feel like that Denies numbness, Denies hx of diabetes, denies tingling, denies fever or chills Related Data Previous Rx's Medication Instructions Recorded atorvastatin 20 mg tablet See Rx Instructions .Route 07/30/23 .COMPLEX #90 tabs amlodipine 10 mg tablet See Rx Instructions .Route 11/15/23 .COMPLEX #120 tabs carvedilol 12.5 mg tablet See Rx Instructions .Route 11/15/23 .COMPLEX #180 tabs lisinopril 20 See Rx Instructions .Route 11/15/23 mg-hydrochlorothiazide 12.5 mg .COMPLEX #180 tabs tablet clindamycin HCl 300 mg capsule 300 mg PO Q6H #40 caps 03/31/24 methylprednisolone 4 mg tablets in See Rx Instructions .Route 03/31/24 a dose pack (Medrol (Oc)) .COMPLEX 6 days #21 tabs mupirocin 2 % topical ointment 1 applic topical TID 10 days #22 03/31/24 grams Allergies Allergy/AdvReac Type Severity Reaction Status Date / Time bacitracin Allergy Unknown Verified 11/27/23 13:49 [From NEOSPORIN ([id number])] morphine [MORPHINE] Allergy Unknown Verified 11/27/23 13:49 neomycin Allergy Unknown Verified 11/27/23 13:49 [From NEOSPORIN ([id number])] polymyxin B Allergy Unknown Verified 11/27/23 13:49 [From NEOSPORIN ([id number])] Worker's Comp Is this a Worker's Comp case?: No [facility] Disclaimer: The information contained in this section may have been updated after the patient was seen, as this information can be updated by other users. Medical History (Updated 03/31/24 @ 16:06 by Ranjana Bae APRN) Edema of both lower extremities Abnormal nuclear cardiac imaging test Abnormal electrocardiogram [ECG] [EKG] Hyperlipidemia Hypertension History of stroke Malignant essential hypertension Daytime sleepiness Vitamin D deficiency Carotid artery stenosis Family history of coronary artery disease SOB (shortness of breath) Tachycardia HTN (hypertension) Abdominal bruit HTN (hypertension), benign Surgical History H/O vasectomy Hx of tonsillectomy Social History Smoking Status: Never smoker second hand exposure: No alcohol intake: current alcohol intake frequency: 0-2 drinks per day substance use type: denies use current occupational status: other Travel in the last 8 weeks: None ROS Obtained: Yes All systems reviewed & no additional complaints except as documented and Yes Systems reviewed as appropriate & no additional complaints except as documented Constitutional Constitutional: Reports system reviewed and no additional complaints, except as documented and Reports as per HPI ENT Ears, Nose, Mouth, and Throat: Reports system reviewed and no additional complaints, except as documented and Reports as per HPI Cardiovascular Cardiovascular: Reports system reviewed and no additional complaints, except as documented and Reports as per HPI Respiratory Respiratory: Reports system reviewed and no additional complaints, except as documented and Reports as per HPI Gastrointestinal Gastrointestingal: Reports system reviewed and no additional complaints, except as documented and as per HPI Musculoskeletal Musculoskeletal: Reports system reviewed and no additional complaints, except as documented and Reports as per HPI Integumentary/Breasts Skin/Breast: Reports system reviewed and no additional complaints, except as documented and Reports as per HPI Comments: Redness, swelling and pain in joint of left great toe after cutting nail into quick yesterday and going fishing Physical Exam General General appearance: alert and in no apparent distress ENT ENT exam: Present mucous membranes moist Respiratory Respiratory exam: Present normal lung sounds bilaterally; Absent respiratory distress or wheezes Cardiovascular Cardiovascular exam: Present regular rate, normal rhythm and normal heart sounds Expanded Lower Extremity Exam Left: Top foot image: 2 1. redness, mild warmth, and swelling noted reports symptoms started today after cutting toenail into the quick yesterday Denies known injury Gait: observed and normal Neurological Exam Neurological exam: Present alert and oriented X3 Medical Decision Making Alex Inquiry Pt receiving controlled substance: No Alex was queried for this patient: No Vital Signs: 03/31/24 15:10 Temperature 98.2 F Temperature Source Oral Pulse Rate [Left Brachial] 83 Respiratory Rate 20 Blood Pressure [Left Arm] 149/94 H Blood Pressure Mean [Left Arm] 112 Blood Pressure Source [Left Arm] Automatic Cuff Blood Pressure Position [Left Arm] Sitting 02 Sat by Pulse Oximetry 96 Oxygen Delivery Method Room Air Lab Data 03/31/24 15:40 03/31/24 15:40 Orders (Tests/Meds): ORDERS Category Date Time Status C-Reactive Protein Stat Lab 03/31/24 15:37 Ordered Complete Blood Count Auto Diff Stat Lab 03/31/24 15:37 Ordered Comprehensive Metabolic Panel Stat Lab 03/31/24 15:37 Ordered Erythrocyte Sedimentation Rate Stat Lab 03/31/24 15:37 Ordered Uric Acid Stat Lab 03/31/24 15:37 Ordered Medical Decision Narrative: Discussed with patient about lab work patient did not want to wait on the results, patient was discussed with Podiatry and treatment as follows, will start patient on Clindamycin and order labs requested by Podiatry and they will watch for and call him with results, he was given appointment for April 07 at 1045 Patient did agree to treatment plan Labs discussed with Dr Orozco and called patient with results, will send in Medrol dose pack and patient to keep appointment as scheduled
[2024-03-31 15:58] LABS: Basophils # 0.1 K/mm3 (0-0.2); Basophils % 0.7 % (0.1-2.0); Eosinophils # 0.2 K/mm3 (0.0-0.4); Eosinophils % 2.3 % (0.1-12.0); Hematocrit 42.5 % (42.0-52.0); Hemoglobin 14.1 g/dL (14.1-18.0); Lymphocytes # 1.9 K/mm3 (0.7-4.5); Lymphocytes % 24.2 % (10-50); Mean Corpuscular HGB Conc 33.3 g/dL (31.8-35.4); Mean Corpuscular Hemoglobin 30.5 pg (27.0-31.2); Mean Corpuscular Volume 91.9 fl (80-94); Mean Platelet Volume 8.1 fl (7.4-10.4); Monocytes # 0.5 K/mm3 (0.1-1.0); Monocytes % 6.9 % (1.7-9.3); Neutrophils % 65.9 % (37.0-80.0); Platelet Count 241 K/mm3 (142-424); Red Blood Count 4.63 M/mm3 (4.60-6.20); Red Cell Distribution Width 14.6 % (11.5-17.5); White Blood Count 7.6 K/mm3 (4.8-10.8)
[2024-03-31 16:06] LABS: Chloride 103 mmol/L (98-107); Potassium 3.5 mmoL/L (3.5-5.1); Sodium 138 mmol/L (136-145)
[2024-03-31 16:07] VITALS: BP 149/94; PULSE 83; RESP 20; TEMP 36.8; O2SAT 96
[2024-03-31 16:08] LABS: Alanine Aminotransferase 25 U/L (12-78); Aspartate Amino Transferase 25 U/L (17-59); Blood Urea Nitrogen 16 mg/dl (9-20); Creatinine Clearance Estimated 108 mL/min (50-200); Estimated Glomerular Filt Rate 89 ml/min (>60); GFR (African American) 108 ML/MIN (>60)
[2024-03-31 16:09] LABS: Albumin/Globulin Ratio 1.2 (1.1-1.8); Alkaline Phosphatase 83 U/L (38-126); Bilirubin,Total 0.8 mg/dl (0.2-1.3); Calcium 9.1 mg/dl (8.4-10.2); Globulin 3.4 g/dL (1.3-3.2); Glucose 111 mg/dl (74-100); Total Protein,Serum 7.4 g/dl (6.3-8.2)
[2024-03-31 16:19] LABS: Uric Acid 8.9 mg/dl (3.5-8.5)
[2024-03-31 17:02] LABS: Erythrocyte Sedimentation Rate 20 mm/hr (0-15)
[2024-03-31 17:43] LABS: Anion Gap 7.5 mEq/L (5-15); Carbon Dioxide 31 mmol/L (22.0-30.0)
== END 2024-03-31 16:13 | disposition home or self-care (01) ==
PROVIDERS: Podiatrist; Emergency Provider Nurse Practitioner; PCP Nurse Practitioner Family
DX: M79.675 Pain in left toe(s) (principal); L08.9 Local infection of the skin and subcutaneous tissue, unspecified; I10 Essential (primary) hypertension; E78.5 Hyperlipidemia, unspecified
CPT/HCPCS: 80053; 84550; 85025; 85651; 86140; 99212; 99214; G0463

== ENCOUNTER 2024-04-17 16:07 | Emergency (ER) | payer MEDICARE, MEDICAID, SELFPAY ==
[2024-04-17 17:07] VITALS: BP 130/76; PULSE 76; RESP 18; TEMP 36.6; O2SAT 95; BMI 44.6
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
[2024-04-17 17:51] VITALS: BP 130/76; PULSE 76; RESP 18; TEMP 36.6; O2SAT 95
== END 2024-04-17 17:52 | disposition home or self-care (01) ==
PROVIDERS: Emergency Provider Nurse Practitioner; PCP Nurse Practitioner Family
DX: M25.511 Pain in right shoulder (principal); M62.838 Other muscle spasm
CPT/HCPCS: 99212; 99214; G0463

== ENCOUNTER 2024-09-23 17:08 | Emergency (ER) | payer MEDICARE, MEDICAID, SELFPAY ==
[2024-09-23 17:21] VITALS: BP 157/98; PULSE 80; RESP 16; TEMP 36.6; O2SAT 98; BMI 46.0
--- NOTE | 2024-09-23 17:45 | HMH.EDGENADL ---
Discharge Plan Disposition Patient Disposition: Home, Self-Care Prescriptions Prescriptions: New methocarbamol 750 mg tablet 1,500 mg PO TID 5 Days Qty: 30 0RF lidocaine 5 % adhesive patch,medicated 1 patch topical DAILY Qty: 30 0RF Rx Instructions: leave on most painful area for up to 12 hrs prednisone 20 mg tablet 40 mg PO DAILY 5 Days Qty: 10 0RF No Action amlodipine 10 mg tablet See Rx Instructions .ROUTE .COMPLEX Qty: 120 3RF Dose Instruction: Take 1 tablet by mouth twice daily Rx Instructions: Take 1 tablet by mouth twice daily atorvastatin 20 mg tablet See Rx Instructions .ROUTE .COMPLEX Qty: 90 4RF Dose Instruction: TAKE 1 TABLET BY MOUTH ONCE DAILY FOR CHOLESTEROL Rx Instructions: TAKE 1 TABLET BY MOUTH ONCE DAILY FOR CHOLESTEROL lisinopril-hydrochlorothiazide 20-12.5 mg tablet See Rx Instructions .ROUTE .COMPLEX Qty: 7 0RF Dose Instruction: Take 1 tablet by mouth twice daily Rx Instructions: Take 1 tablet by mouth twice daily carvedilol 12.5 mg tablet See Rx Instructions .ROUTE .COMPLEX Qty: 7 0RF Dose Instruction: Take 1 tablet by mouth twice daily Rx Instructions: Take 1 tablet by mouth twice daily mupirocin 2 % ointment 1 applic topical TID 10 Days Qty: 22 0RF Rx Instructions: apply to skin around toenail on left great toe clindamycin HCl 300 mg capsule 300 mg PO Q6H Qty: 40 0RF methylprednisolone [Medrol (Oc)] 4 mg tablets,dose pack See Rx Instructions .Route .COMPLEX 6 Days Qty: 21 0RF Rx Instructions: taper pack; methocarbamol 750 mg tablet 750 mg PO Q8H PRN (Reason: muscle spasm) Qty: 20 0RF methylprednisolone [Medrol (Oc)] 4 mg tablets,dose pack See Rx Instructions .Route .COMPLEX 6 Days Qty: 21 0RF Rx Instructions: taper pack; Referrals Follow up/Referrals: Scott Guerrero APRN [Primary Care Provider] - See instructions Willian Smith DO [Staff Physician] - See instructions Activity Restrictions/Add. Instructions Additional Instructions/Restrictions: Call your family doctor to establish care for this visit to the emergency department and schedule follow-up within 48 hours to ensure improvement. If you have any worsening of your condition or any other concerning signs or symptoms, return to the emergency department or your primary care doctor for further evaluation. Call Dr. Smith for further evaluation and probable MRI of your right shoulder. Clinical Impressions Clinical Impression: Injury of right rotator cuff Print Language Print Language: Ghanaian Discharge ED Provider: Alden Black General Adult HPI General Chief complaint: PAIN Stated complaint: right shoulder pain Time Seen by Provider: 09/23/24 17:12 Mode of Arrival: Ambulatory Source of Information: Patient Limitations: No Limitations Description of Symptoms (Recalled from ER Triage Doc. by RN): pt c/o R shoulder pain that is throbbing and 100/10. pt states he woke up last night after sleeping on it and he was having numbness and tingling radiating distal to his wrist. pt states this happens almost every night. however, this pain is way worse than his baseline. 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 pt states he tried an arthritis pill and two shots of whisky without any relief. History of Present Illness HPI narrative: Please note that above description of symptoms, in this electronic medical record under categorization of recalled from ER triage doctor by RN are reflective of an initial nursing assessment, however, is not reflective of my full history and physical exam that was personally taken and clarified. Consequentially, this preceding description of symptoms, which may include the patient's categorized chief complaint in the EMR, do not reflect my personal clinical impression, and the ultimate description of history of present illness and patient stated complaints should be deferred to this section of the note. Unless stated otherwise or congruent with this section of the note, additional signs, symptoms, or incongruence should be interpreted as inaccurate with my clinical impression. Related Data Previous Rx's ?Medication ?Instructions ?Recorded amlodipine 10 mg tablet See Rx Instructions .Route 11/15/23 .COMPLEX #120 tabs clindamycin HCl 300 mg capsule 300 mg PO Q6H #40 caps 03/31/24 methylprednisolone 4 mg tablets in See Rx Instructions .Route 03/31/24 a dose pack (Medrol (Oc)) .COMPLEX 6 days #21 tabs mupirocin 2 % topical ointment 1 applic topical TID 10 days #22 03/31/24 grams methocarbamol 750 mg tablet 750 mg PO Q8H PRN muscle spasm #20 04/17/24 tabs methylprednisolone 4 mg tablets in See Rx Instructions .Route 04/17/24 a dose pack (Medrol (Oc)) .COMPLEX 6 days #21 tabs atorvastatin 20 mg tablet See Rx Instructions .Route 09/11/24 .COMPLEX #90 tabs carvedilol 12.5 mg tablet See Rx Instructions .Route 09/11/24 .COMPLEX #7 tabs lisinopril 20 See Rx Instructions .Route 09/11/24 mg-hydrochlorothiazide 12.5 mg .COMPLEX #7 tabs tablet lidocaine 5 % topical patch 1 patch topical DAILY #30 ea 09/23/24 methocarbamol 750 mg tablet 1,500 mg (2 x 750 mg) PO TID 5 09/23/24 days #30 tabs prednisone 20 mg tablet 40 mg (2 x 20 mg) PO DAILY 5 days 09/23/24 #10 tabs Allergies Allergy/AdvReac Type Severity Reaction Status Date / Time bacitracin (From NEOSPORIN Allergy Unknown Rash Verified 09/23/24 17:29 ([id number])) morphine (MORPHINE) Allergy Unknown Vomiting Verified 09/23/24 17:29 neomycin (From NEOSPORIN Allergy Unknown Rash Verified 09/23/24 17:29 ([id number])) polymyxin B (From NEOSPORIN Allergy Unknown Rash Verified 09/23/24 17:29 ([id number])) [facility] Disclaimer: The information contained in this section may have been updated after the patient was seen, as this information can be updated by other users. Medical History Edema of both lower extremities Abnormal nuclear cardiac imaging test Abnormal electrocardiogram [ECG] [EKG] Hyperlipidemia Hypertension History of stroke Malignant essential hypertension Daytime sleepiness Vitamin D deficiency Carotid artery stenosis Family history of coronary artery disease SOB (shortness of breath) Tachycardia HTN (hypertension) Abdominal bruit HTN (hypertension), benign Surgical History H/O vasectomy Hx of tonsillectomy Social History Smoking Status: Never smoker second hand exposure: No alcohol intake: current alcohol intake frequency: 0-2 drinks per day substance use type: denies use current occupational status: other Travel in the last 8 weeks: None Have you lived/traveled outside [place] in past 30 days?: No Contact w/someone who lives/traveled outside [place] past 30 days?: No Exposure to someone with infectious disease in past 14 days?: No Do you have a fever (greater than 100.4 F or 38 C)?: No Have you tested positive for COVID-19: No Exposed to someone with COVID-19 in past 14 days?: No Do you have a sore throat?: No Do you have a cough?: No Do you have any weakness?: No Do you have any diarrhea?: No Are you experiencing any unusual bleeding?: No Do you have any muscle aches/pain?: No Do you have any abdominal pain?: No Are you experiencing loss of taste or smell?: No Other Medical History Have you received the Flu Vaccine for this season: Yes Have you received the Pneumonia Vaccine: No ROS Obtained: Yes All systems reviewed & no additional complaints except as documented Physical Exam General General appearance: alert and in no apparent distress (While at rest) Head Head exam: atraumatic and normocephalic Eye Eye exam: Present normal appearance, PERRL and EOMI Neck Neck exam: Present normal inspection, full ROM and trachea midline Respiratory Respiratory exam: Absent respiratory distress, wheezes, stridor, accessory muscle use or prolonged expiratory phase Cardiovascular Cardiovascular exam: Present other (Pulses equal symmetric in upper and lower extremities) Abdominal Exam Abdominal exam: Present soft; Absent distention, tenderness or pulsatile mass Extremities Exam Extremities exam: Present other (Patient has significant pain with external rotation and abduction of right shoulder. Minimal pain with internal rotation and adduction. Neurovascularly intact) Neurological Exam Neurological exam: Present alert, oriented X3 and CN II-XII intact; Absent motor sensory deficit Skin Skin exam: Present warm and dry; Absent diaphoresis or erythema Medical Decision Making Medical Records Medical records reviewed: Yes I reviewed the patient's medical records. Screening: Per USPSTF and CDC recommendations, given the prevalence of disease in our region, it is our hospital?s policy to screen for HIV and viral Hepatitis for all patients aged 18 and over and those with ongoing risk factors. Alex Inquiry Pt receiving controlled substance: No Alex was queried for this patient: No Vital Signs: 09/23/24 17:21 Temperature 98 F Temperature Source Oral Pulse Rate [Left] 80 Respiratory Rate 16 Blood Pressure [Left Arm] 157/98 H Blood Pressure Mean [Left Arm] 117 Blood Pressure Source [Left Arm] Automatic Cuff Blood Pressure Position [Left Arm] Sitting 02 Sat by Pulse Oximetry 98 Oxygen Delivery Method Room Air Orders (Tests/Meds): ED MEDICATIONS Discontinued Medications Generic Name Dose Route Start Last Admin Trade Name Mirian PRN Reason Stop Dose Admin Lidocaine 1 each 09/23/24 17:43 09/23/24 18:03 Lidocaine 5% Transdermal Patch TP 09/23/24 17:44 1 each ONCE ONE Administration Methocarbamol 1,500 mg 09/23/24 17:43 09/23/24 18:03 Methocarbamol 500mg Tablet PO 09/23/24 17:44 1,500 mg ONCE ONE Administration Prednisone 40 mg 09/23/24 17:43 09/23/24 18:03 Prednisone 20mg Tab PO 09/23/24 17:44 40 mg ONCE ONE Administration ORDERS Category Date Time Status Shoulder XR right miminum 2 views [XR shoulder RT min Exams 09/23/24 17:52 Taken 2V] Stat Medical Decision Narrative: 49-year-old male no medical history presenting with right upper extremity pain. 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 States that he has intermittently injured his shoulder, needing to have steroids and muscle relaxers. Patient states that he rolled over in bed today, 09/23, abducted his shoulder to put underneath his pillow and had an immediate pain in his right shoulder to the radiates down into his right upper extremity. States that intermittently having tingling in his right hand. No motor deficits or color changes to the arm. No traumatic history of the upper extremity recently. Has taken NSAIDs, this does not help, so came to the emergency department for further evaluation. History was obtained via conversation with patient. On arrival, patient hemodynamically stable, alert, [oriented x4, ][appropriate, ]GCS [15], moving all extremities spontaneously, pupils equal and reactive to light. Full physical exam performed and significant for well-appearing male who is in no acute distress at baseline. When he moves he does appear to be in mild to moderate pain. Most pain with external rotation and abduction of shoulder. Neurovascularly intact right upper extremity. No outward signs of abnormality. Differential includes soft tissue injury, avulsion injury, intra-articular abnormality, among others. Patient given lidocaine patch, 1500 mg Robaxin and 40 mg prednisone. Hematologic workup was considered, but not deemed necessary as this was atraumatic, no systemic signs or symptoms and known right shoulder abnormality structurally. X-rays were obtained, on independent interpretation these demonstrated no acute bony abnormality, but patient does have calcific tendinosis and small GH joint effusion consistent with inflammation, likely rotator cuff injury. On reevaluation, patient still resting as he was at baseline. Patient still in mild to moderate pain, sling was applied for comfort. Because patient at baseline without signs or symptoms of clinical decompensation, deemed appropriate for discharge. Results were relayed to patient[] who voiced understanding and were agreeable to outpatient management and follow up. I discussed my clinical impression with patient[] and answered all questions. At this time, the evidence for any other entities in the differential is insufficient to warrant any further testing or ED observation. This was explained as well. Advisory was given that persistent or worsening symptoms require further evaluation. I confirmed the understanding of this discussion. Panel Instrument Repairer disclaimer Much of this encounter note is an electronic public relations writer spoken language to printed text. Electronic public relations writer of the spoken language may permit errors. Although I have reviewed the note, some errors may still exist. Critical Care Critical Care Time Critical Care Time: No
--- NOTE | 2024-09-23 17:52 | XR_ITS ---
PROCEDURE INFORMATION: Exam: XR Right Shoulder Exam date and time: 09/23/2024 5:50 PM Age: 49 years old Clinical indication: Pain; Shoulder; Right; Additional info: R shoulder pain anterior gh joint TECHNIQUE: Imaging protocol: Radiologic exam of the right shoulder. Views: 2 or more views. COMPARISON: CR XR CHEST 2V 06/02/2022 1:41 AM FINDINGS: Bones/joints: No acute fracture or malalignment. Rotator cuff calcific tendinitis. Minimal glenohumeral joint osteoarthritis. Acromioclavicular joint arthrosis. Soft tissues: Normal. IMPRESSION: 1. No acute osseous findings. 2. Rotator cuff calcific tendinitis. 3. Acromioclavicular and glenohumeral joint degenerative changes.
[2024-09-23] MEDS: METHOCARBAMOL 500MG TABLET 1500 MG PO (18:03)
[2024-09-23] MEDS: predniSONE 20MG TAB 40 MG PO (18:03)
[2024-09-23] MEDS: LIDOCAINE 5% TRANSDERMAL PATCH 1 EACH TP (18:03)
[2024-09-23 18:46] VITALS: BP 145/90; PULSE 79; RESP 16; TEMP 36.8; O2SAT 98
--- NOTE | 2024-09-23 18:53 | PC.NURSE ---
sling placed on pt.
== END 2024-09-23 18:57 | disposition home or self-care (01) ==
PROVIDERS: Emergency Provider Emergency Medicine; PCP Nurse Practitioner Family
DX: S46.001A Unspecified injury of muscle(s) and tendon(s) of the rotator cuff of right shoulder, initial encounter (principal); M25.511 Pain in right shoulder; R20.2 Paresthesia of skin; X50.0XXA Overexertion from strenuous movement or load, initial encounter; Y93.89 Activity, other specified; Y92.9 Unspecified place or not applicable
CPT/HCPCS: 73030; 99283

== ENCOUNTER 2024-12-23 09:51 | Outpatient (CLI) | payer MEDICARE, MEDICAID, SELFPAY ==
[2024-12-23 18:42] LABS: Basophils # 0.1 K/mm3 (0-0.2); Basophils % 0.8 % (0.1-2.0); Eosinophils % 0.3 % (0.1-12.0); Hematocrit 46.8 % (42.0-52.0); Hemoglobin 15.6 g/dL (14.1-18.0); Lymphocytes % 28.7 % (10-50); Mean Corpuscular HGB Conc 33.3 g/dL (31.8-35.4); Mean Corpuscular Hemoglobin 29.6 pg (27.0-31.2); Mean Corpuscular Volume 88.8 fl (80-94); Mean Platelet Volume 9.9 fl (7.4-10.4); Monocytes % 9.5 % (1.7-9.3); Neutrophils # 6.2 K/mm3 (1.8-7.8); Neutrophils % 59.5 % (37.0-80.0); Platelet Count 305 K/mm3 (142-424); Red Blood Count 5.27 M/mm3 (4.60-6.20); Red Cell Distribution Width 14.2 % (11.5-17.5); White Blood Count 10.5 K/mm3 (4.8-10.8)
[2024-12-23 20:20] LABS: Alanine Aminotransferase 27 U/L (12-78); Albumin/Globulin Ratio 1.2 (1.1-1.8); Alkaline Phosphatase 73 U/L (38-126); Aspartate Amino Transferase 19 U/L (17-59); Bilirubin,Total 0.6 mg/dl (0.2-1.3); Blood Urea Nitrogen 17 mg/dl (9-20); Calcium 9.7 mg/dl (8.4-10.2); Carbon Dioxide 33 mmol/L (22.0-30.0); Chloride 97 mmol/L (98-107); Cholesterol 159 mg/dl (140-200); Estimated Glomerular Filt Rate 119 ml/min (>60); GFR (African American) 144 ML/MIN (>60); Globulin 3.3 g/dL (1.3-3.2); Glucose 98 mg/dl (74-100); HDL Cholesterol 79 mg/dl (40-60); Sodium 139 mmol/L (136-145); Total Protein,Serum 7.3 g/dl (6.3-8.2); Triglycerides 100 mg/dl (30-150); VLDL Cholesterol 20 mg/dL (0-40)
[2024-12-23 20:32] LABS: Direct LDL Cholesterol 75.94 mg/dL (100-129)
[2024-12-23 20:41] LABS: 25-OH Vitamin D, Total 16.4 ng/mL (30-100)
[2024-12-23 20:54] LABS: Prostate Specific Ag Screen 0.6 ng/ml (0.0-4.0); Thyroid Stimulating Hormone 2.89 uIU/mL (0.465-4.68)
[2024-12-23 21:08] LABS: HIV Combo NEGATIVE (Negative)
[2024-12-23 21:14] LABS: Hepatitis C Ab Qual. W/ RFX NEGATIVE (Negative)
== END 2024-12-23 23:59 | disposition home or self-care (01) ==
LOC: LAB.DROPOF 12-24 12:33
PROVIDERS: PCP Nurse Practitioner Family; Visit Provider Nurse Practitioner Family
DX: E78.2 Mixed hyperlipidemia (principal); Z12.11 Encounter for screening for malignant neoplasm of colon; E55.9 Vitamin D deficiency, unspecified; I10 Essential (primary) hypertension; Z11.59 Encounter for screening for other viral diseases
CPT/HCPCS: 80053; 80061; 82306; 84443; 85025; 86803; 87389; G0103

== ENCOUNTER 2025-01-01 13:26 | Outpatient (CLI) | payer MEDICARE, MEDICAID, SELFPAY ==
--- NOTE | 2025-01-01 13:32 | XR_ITS ---
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 No metallic/radiopaque foreign body is identified. IMPRESSION: No metallic foreign body. Reviewed, Interpreted and Dictated by Charisma Méndez MD Transcribed by Roberta Ching Authenticated and [facility]
--- NOTE | 2025-01-01 13:45 | MR_ITS ---
FINAL REPORT TECHNIQUE: Multiplanar MR without gadolinium enhancement CLINICAL HISTORY: R Shoulder pain lrom COMPARISON: None FINDINGS: Marrow signal: Unremarkable Glenohumeral joint: Unremarkable Acromioclavicular joint: There is moderate arthropathy, minimal impingement, and some bone marrow edema around the joint capsule. If there has been recent trauma, this may represent a grade 1 AC separation, otherwise degenerative in etiology. Rotator cuff apparatus: There is a mild partial tear of the subscapularis tendon. The supraspinatus and infraspinatus tendons are intact. Labrum: Unremarkable Biceps tendon: Intact IMPRESSION: There is moderate arthropathy of the acromial clavicular tendon, and some bone marrow edema around the joint capsule. If there has been recent trauma this may represent a grade 1 separation, otherwise is more likely degenerative in origin. Mild partial tear of the subscapularis tendon. Reviewed, Interpreted and Dictated by Charisma Méndez MD Transcribed by Juli Greenwood Authenticated and [facility]
== END 2025-01-01 23:59 | disposition home or self-care (01) ==
LOC: RAD 13:26
PROVIDERS: PCP Nurse Practitioner Family; Visit Provider Nurse Practitioner Family
DX: M25.511 Pain in right shoulder (principal); M75.51 Bursitis of right shoulder; S46.001A Unspecified injury of muscle(s) and tendon(s) of the rotator cuff of right shoulder, initial encounter
CPT/HCPCS: 70200; 73221

== ENCOUNTER 2025-07-07 10:18 | Outpatient (CLI) | payer MEDICARE, MEDICAID, SELFPAY ==
--- NOTE | 2025-07-07 10:18 | XR_ITS ---
FINAL REPORT CLINICAL HISTORY: left shoulder pain FINDINGS: 2 views of the left shoulder were obtained. There is no fracture or dislocation. There is mild degenerative joint disease. Soft tissues are unremarkable. IMPRESSION: No acute osseous abnormality of the left shoulder. Reviewed, Interpreted and Dictated by Dina Plata MD Transcribed by Yesenia Gloria Authenticated and [facility]
--- OUTSIDE RECORDS SUMMARY | 2025-07-07 10:23 | XMS_ITS | Clinical Summary ---
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 Role Phone Unavailable Primary Care Provider Unavailabl e Allergies No known active allergies Social History Tobacco Use Types Packs/Day Years Used Date Smoking Tobacco: Never Assessed Sex and Gender Information Value Date Recorded Sex Assigned at Not on file Legal Sex Male 5:20 PM EDT Gender Identity Not on file Sexual Orientation Not on file Last Filed Vital Signs Vital Sign Reading Time Taken Comments Blood Pressure 130/92 05/10/2022 6:59 PM EDT Pulse 80 05/10/2022 6:59 PM EDT Temperature 36.5 C (97.7 F) 05/10/2022 5:34 PM EDT Respiratory Rate 24 05/10/2022 6:59 PM EDT Oxygen Saturation 93% 05/10/2022 6:59 PM EDT Inhaled Oxygen Concentration - - Weight 147 kg (324 lb 11.8 oz) 05/10/2022 5:34 P M EDT Height 182.9 cm (6') 05/10/2022 5:34 PM EDT Body Mass Index 44.04 05/10/2022 5:34 PM EDT Plan of Treatment Health Maintenance Due Date Last Done Comments [facility]-Depression Screening 1974 [facility]-/Child/Adol SDOH Screenings 1974 [facility]- SDOH Screenings 1992 [facility]-Adult SDOH Screenings 1992 [facility]-Hepatitis B Vaccines (1 of 3 - 19+ 3-dose series) 1993 [facility]-DTaP,Tdap,and Td Vaccine s (1 - Tdap) 11/27/1996 11/26/1996 CT Colonography 2019 Colonoscopy 2019 FIT-DNA 2019 FIT 2019 FOBT 2019 Sigmoidoscopy 2019 [facility]-Colorectal Cancer Screening 2019 [facility]-Pneumococcal Vaccine: 50 + Years (1 of 1 - PCV) 2024 [facility]-Zoster Vaccines (1 of 2) 2024 QBZ-IGIPO-12 Vaccine (1 - 20 24-25 season) 2025 [facility]-Influenza Vaccine (#1) 2025 HPV Vaccines Aged Out No longer eligi ble based on patient's age to complete this topic [facility]-HIB Vaccines Aged Out No longer e ligible based on patient's age to complete this topic [facility]-Hepatitis A Vaccines Aged Out No longer eligible based on patient's age to complete this topic [facility]-IPV Vaccines Aged Out No longer e ligible based on patient's age to complete this topic [facility]-Rotavirus Vaccines Aged Out No lo nger eligible based on patient's age to complete this topic Insurance [facility]
== END 2025-07-07 23:59 | disposition home or self-care (01) ==
LOC: RAD 10:18
PROVIDERS: PCP Nurse Practitioner Family; Visit Provider Physician Assistant
DX: M19.012 Primary osteoarthritis, left shoulder (principal)
CPT/HCPCS: 73030